=== PATIENT | male | born 1930 | race Caucasian/White ===

== ENCOUNTER 2016-06-19 09:47 | Emergency (ER) | payer MEDICARE ==
[~2016-06-19] VITALS: Wt 83.9 kg
[2016-06-19 10:38] LABS: BASO % 0.1 % (0.0-1.0); EOS # 0.1 10*3/uL (0.0-0.4); EOS % 1.3 % (1.0-4.0); HEMATOCRIT 38.1 % (42.0-52.0); HEMOGLOBIN 12.5 g/dl (14.0-18.0); IG # 0.1 10*3/uL (0.0-0.1); LYMPH # 0.7 10*3/uL (1.3-4.4); LYMPH % 6.9 % (27.0-41.0); MEAN CELL VOLUME 90.5 fl (80.0-94.0); MEAN CORPUSCULAR HGB 29.7 pg (27.0-31.0); MEAN CORPUSCULAR HGB CONC 32.8 g/dl (33.0-37.0); MEAN PLATELET VOLUME 9.1 fl (9.6-12.3); MONO # 0.6 10*3/uL (0.1-1.0); NEUT % 85.1 % (47.0-73.0); PLATELET COUNT AUTOMATED 200 10*3/uL (130-400); RED BLOOD COUNT 4.21 10*6/uL (4.50-5.90); RED CELL DISTRI WIDTH 14.2 % (0-14.5); WHITE BLOOD COUNT 9.4 10*3/uL (4.8-10.8)
[2016-06-19 10:53] LABS: ALBUMIN 3.4 gm/dl (3.1-4.5); ALKALINE PHOSPHATASE 53 U/L (45-117); BILIRUBIN, TOTAL 0.5 mg/dl (0.2-1.0); BUN 27 mg/dl (7-24); CARBON DIOXIDE 29 mmol/L (21-32); CHLORIDE 103 mmol/L (98-107); EST GLOM FILT AFRICAN AMERICAN > 60 ml/min; GLUCOSE 119 mg/dL (65-99); POTASSIUM 3.9 mmol/L (3.5-5.1); SGOT/AST 22 IU/L (3-35); SGPT/ALT 25 U/L (12-78); SODIUM 140 mmol/L (136-145)
[2016-06-19 14:54] LABS: BILIRUBIN NEGATIVE (NEGATIVE); BLOOD 1+ (NEGATIVE); CLARITY CLEAR (CLEAR); COLOR YELLOW (YELLOW); GLUCOSE NEGATIVE (NEGATIVE); KETONE NEGATIVE (NEGATIVE); LEUKO ESTERASE NEGATIVE (NEGATIVE); NITRITE NEGATIVE (NEGATIVE); PROTEIN NEGATIVE (NEGATIVE); SPECIFIC GRAVITY <= 1.005 (1.005-1.030); UROBILINOGEN 0.2 E.U./dl (0.2-1.0)
[2016-06-19 15:07] LABS: URINE REFLEX COMMENT YES (NO); WBC 0-2 wbc/hpf (0-5)
== END 2016-06-19 16:02 | disposition home or self-care (01) ==
LOC: ED 09:47
PROVIDERS: Emergency Medicine
DX: R10.12 Left upper quadrant pain (principal); K21.9 Gastro-esophageal reflux disease without esophagitis; I10 Essential (primary) hypertension; E03.9 Hypothyroidism, unspecified; Z86.73 Personal history of transient ischemic attack (TIA), and cerebral infarction without residual deficits; Z98.890 Other specified postprocedural states; Z90.49 Acquired absence of other specified parts of digestive tract; Z79.82 Long term (current) use of aspirin; Z79.899 Other long term (current) drug therapy; Z88.5 Allergy status to narcotic agent; Z91.018 Allergy to other foods

== ENCOUNTER → 2016-06-19 | Outpatient (CLI) | payer MEDICARE ==
[~2016-06-19] MED LIST: ALENDRONATE SOD70 M1 PO; ARICEPT5 M1 PO; ASPIR LOW81 MG PO; CIPRO500 MG PO; ENSURE PLUS 23237 ML PO; FISH OIL 1,2001 EACH PO; HYDR12.5C PO; ONE DAILY FOR1 EAC2 PO; PROTONIX40 MG PO; SULFAMETH/TRIME1 TA2 PO; SYNTHROID,LEVO88 MCG PO; VITAMIN D400 I1 PO
--- NOTE | ~2016-06-19 | ST ---
[place], [place] EXERCISE STRESS TEST REPORT NAME: THOMPSON DALEY UNIT #: [id number] ROOM: DOCTOR: LYNDON ROSALES,AILIN BIRTHDATE: [birth year] DOS: 06/19/2016 Baseline cardiogram sinus rhythm with complete left bundle branch block, 0.4 mg Lexiscan, duration of 10 seconds. No new EKG changes. However, the underlying left bundle branch block makes the test indeterminate. The patient heart rate is within normal limits. No angina. Nuclear images will be reported separately. AILIN HANEY MD CM:STRESS:EXERCISE STRESS TEST REPORT [id number] AILIN HANEY MD
== END | disposition home or self-care (01) ==
LOC: CARD 03:33
DX: R94.31 Abnormal electrocardiogram [ECG] [EKG] (principal); R53.81 Other malaise

== ENCOUNTER 2016-10-03 21:49 | Emergency (ER) | payer MEDICARE ==
[~2016-10-03] VITALS: Ht 187.9 cm; Wt 81.6 kg
[2016-10-04 01:22] LABS: BILIRUBIN NEGATIVE (NEGATIVE); BLOOD 3+ (NEGATIVE); CLARITY SL CLOUDY (CLEAR); COLOR YELLOW (YELLOW); GLUCOSE NEGATIVE (NEGATIVE); KETONE NEGATIVE (NEGATIVE); LEUKO ESTERASE 2+ (NEGATIVE); NITRITE NEGATIVE (NEGATIVE); PROTEIN 2+ (NEGATIVE); SPECIFIC GRAVITY 1.015 (1.005-1.030)
[2016-10-04 01:29] LABS: BACTERIA 2+; RBC 41-50 rbc/hpf (0-2); URINE REFLEX COMMENT YES (NO); WBC TNTC wbc/hpf (0-5)
[2016-10-04] MEDS ORDERED: AMINOPHYLLIN200 MG PO (01:33)
== END 2016-10-04 01:51 | disposition home or self-care (01) ==
LOC: ED 21:49
PROVIDERS: Emergency Medicine Emergency Medical Services
DX: N39.0 Urinary tract infection, site not specified (principal); I10 Essential (primary) hypertension; E03.9 Hypothyroidism, unspecified; K21.9 Gastro-esophageal reflux disease without esophagitis; M81.0 Age-related osteoporosis without current pathological fracture; Z86.73 Personal history of transient ischemic attack (TIA), and cerebral infarction without residual deficits; Z85.51 Personal history of malignant neoplasm of bladder; Z88.6 Allergy status to analgesic agent; Z91.018 Allergy to other foods; Z79.82 Long term (current) use of aspirin; Z79.899 Other long term (current) drug therapy

== ENCOUNTER 2017-05-28 13:55 | Emergency (ER) | payer MEDICARE ==
[~2017-05-28] VITALS: Ht 185.4 cm; Wt 83.9 kg
[~2017-05-28 13:55] MED LIST changes: +AMINOPHYLLIN200 MG PO
[2017-05-28 14:29] LABS: BASO % 0.6 % (0.0-1.0); EOS # 0.3 10*3/uL (0.0-0.4); EOS % 5.1 % (1.0-4.0); HEMATOCRIT 38.1 % (42.0-52.0); HEMOGLOBIN 12.6 g/dl (14.0-18.0); LYMPH % 19.5 % (27.0-41.0); MEAN CELL VOLUME 93.6 fl (80.0-94.0); MEAN CORPUSCULAR HGB CONC 33.1 g/dl (33.0-37.0); MEAN PLATELET VOLUME 9.2 fl (9.6-12.3); MONO # 0.5 10*3/uL (0.1-1.0); MONO % 9.5 % (3.0-9.0); NEUT # 3.4 10*3/uL (2.3-7.9); NEUT % 64.5 % (47.0-73.0); PLATELET COUNT AUTOMATED 203 10*3/uL (130-400); RED BLOOD COUNT 4.07 10*6/uL (4.50-5.90); RED CELL DISTRI WIDTH 13.5 % (0-14.5); WHITE BLOOD COUNT 5.3 10*3/uL (4.8-10.8)
[2017-05-28 14:43] LABS: ALBUMIN 3.6 gm/dl (3.1-4.5); ALKALINE PHOSPHATASE 74 U/L (45-117); BUN 22 mg/dl (7-24); CHLORIDE 100 mmol/L (98-107); CREATININE 1.18 mg/dL (0.70-1.30); POTASSIUM 4.2 mmol/L (3.5-5.1); SGOT/AST 26 IU/L (3-35); SGPT/ALT 20 U/L (12-78); SODIUM 135 mmol/L (136-145); TOTAL PROTEIN 7.4 gm/dL (6.4-8.2)
[2017-05-28 14:53] LABS: ACT PARTIAL THROMBO TIME 24.8 SECONDS (20.8-31.5)
== END 2017-05-28 15:50 | disposition home or self-care (01) ==
LOC: ED 13:55
PROVIDERS: Emergency Medicine
DX: R04.0 Epistaxis (principal); K21.9 Gastro-esophageal reflux disease without esophagitis; I10 Essential (primary) hypertension; N17.0 Acute kidney failure with tubular necrosis; Z79.82 Long term (current) use of aspirin; Z79.899 Other long term (current) drug therapy; Z91.013 Allergy to seafood; Z88.6 Allergy status to analgesic agent; Z91.018 Allergy to other foods; Z90.89 Acquired absence of other organs; Z90.49 Acquired absence of other specified parts of digestive tract

== ENCOUNTER 2018-06-12 09:19 | Emergency (ER) | payer MEDICARE ==
[~2018-06-12] VITALS: Ht 185.4 cm; Wt 79.8 kg
--- NOTE | ~2018-06-12 | EKG ---
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
[~2018-06-12 09:19] MED LIST changes: +DONEPEZIL HCL10 MG PO; +GAVISCON 80-141 EACH PO; +LEVOTHYROXINE100 MC1 PO
[2018-06-12 09:44] LABS: BASO % 0.4 % (0.0-1.0); EOS # 0.1 10*3/uL (0.0-0.4); EOS % 1.3 % (1.0-4.0); LYMPH # 1.1 10*3/uL (1.3-4.4); LYMPH % 16.5 % (27.0-41.0); MEAN CELL VOLUME 92.5 fl (80.0-94.0); MEAN CORPUSCULAR HGB 30.1 pg (27.0-31.0); MEAN CORPUSCULAR HGB CONC 32.6 g/dl (33.0-37.0); MEAN PLATELET VOLUME 9.7 fl (9.6-12.3); MONO # 0.6 10*3/uL (0.1-1.0); MONO % 9.1 % (3.0-9.0); NEUT # 4.9 10*3/uL (2.3-7.9); NEUT % 72.1 % (47.0-73.0); PLATELET COUNT AUTOMATED 214 10*3/uL (130-400); RED BLOOD COUNT 4.65 10*6/uL (4.50-5.90); RED CELL DISTRI WIDTH 13.9 % (0-14.5); WHITE BLOOD COUNT 6.9 10*3/uL (4.8-10.8)
[2018-06-12 09:52] LABS: ACT PARTIAL THROMBO TIME 25.1 SECONDS (20.8-31.5); INTERNATIONAL NORM RATIO 0.9 (2.0-3.5)
[2018-06-12 10:02] LABS: ALBUMIN 3.6 gm/dl (3.1-4.5); ALKALINE PHOSPHATASE 83 U/L (45-117); BUN 19 mg/dl (7-24); CHLORIDE 96 mmol/L (98-107); LIPASE 123 U/L (73-393); POTASSIUM 3.7 mmol/L (3.5-5.1); SGOT/AST 23 IU/L (3-35); SGPT/ALT 23 U/L (12-78); SODIUM 131 mmol/L (136-145); TOTAL PROTEIN 8.1 gm/dL (6.4-8.2)
[2018-06-12 10:03] LABS: TROPONIN I < 0.015 ng/ml (<0.045)
[2018-06-12 10:52] LABS: BILIRUBIN NEGATIVE (NEGATIVE); BLOOD NEGATIVE (NEGATIVE); CLARITY SL CLOUDY (CLEAR); COLOR ORANGE (YELLOW); GLUCOSE 1+ (NEGATIVE); KETONE TRACE (NEGATIVE); NITRITE POSITIVE (NEGATIVE); SPECIFIC GRAVITY <= 1.005 (1.005-1.030)
[2018-06-12 10:53] LABS: LEUKO ESTERASE TRACE (NEGATIVE)
[2018-06-12] MEDS ORDERED: CIPRO250 MG PO (11:04)
[2018-06-12 11:06] LABS: BACTERIA TRACE
[2018-08-04] MEDS ORDERED: ASPIRIN ADULT L81 M1 PO (10:44)
[2018-08-04] MEDS ORDERED: ALENDRONATE SOD10 M1 PO (10:44)
[2018-08-07] MEDS ORDERED: AMINOPHYLLIN200 MG PO (11:39)
[2018-08-07] MEDS ORDERED: SYNTHROID137 MCG PO (11:39)
[2018-08-07] MEDS ORDERED: CALCIUM CARBON200 MG PO (11:39)
[2018-10-18] MEDS ORDERED: QUESTRAN POWDE378 GM PO (13:54)
[2018-10-18] MEDS ORDERED: QUESTRAN LIGHT4 GM PO (14:06)
== END 2018-06-12 11:09 | disposition home or self-care (01) ==
LOC: ED 09:19
PROVIDERS: Emergency Medicine
DX: N39.0 Urinary tract infection, site not specified (principal); E87.1 Hypo-osmolality and hyponatremia; K21.9 Gastro-esophageal reflux disease without esophagitis; I10 Essential (primary) hypertension; E03.9 Hypothyroidism, unspecified; M81.0 Age-related osteoporosis without current pathological fracture; Z91.018 Allergy to other foods; Z88.5 Allergy status to narcotic agent; Z79.899 Other long term (current) drug therapy; Z90.49 Acquired absence of other specified parts of digestive tract

== ENCOUNTER 2018-06-18 10:14 | Emergency (ER) | payer MEDICARE ==
[~2018-06-18] VITALS: Wt 79.4 kg
[~2018-06-18 10:14] MED LIST changes: +CIPRO250 MG PO
[2018-06-18 11:02] LABS: BILIRUBIN NEGATIVE (NEGATIVE); BLOOD NEGATIVE (NEGATIVE); CLARITY CLEAR (CLEAR); COLOR YELLOW (YELLOW); GLUCOSE NEGATIVE (NEGATIVE); KETONE NEGATIVE (NEGATIVE); LEUKO ESTERASE NEGATIVE (NEGATIVE); NITRITE NEGATIVE (NEGATIVE); UROBILINOGEN 0.2 E.U./dl (0.2-1.0)
[2018-08-04] MEDS ORDERED: ALENDRONATE SOD10 M1 PO (10:44)
[2018-08-04] MEDS ORDERED: ASPIRIN ADULT L81 M1 PO (10:44)
[2018-08-07] MEDS ORDERED: SYNTHROID137 MCG PO (11:39)
[2018-08-07] MEDS ORDERED: CALCIUM CARBON200 MG PO (11:39)
[2018-08-07] MEDS ORDERED: AMINOPHYLLIN200 MG PO (11:39)
[2018-10-18] MEDS ORDERED: QUESTRAN POWDE378 GM PO (13:54)
[2018-10-18] MEDS ORDERED: QUESTRAN LIGHT4 GM PO (14:06)
== END 2018-06-18 11:34 | disposition home or self-care (01) ==
LOC: ED 10:14
PROVIDERS: Emergency Medicine
DX: R53.83 Other fatigue (principal); R09.81 Nasal congestion; K21.9 Gastro-esophageal reflux disease without esophagitis; I10 Essential (primary) hypertension; E03.9 Hypothyroidism, unspecified; Z86.73 Personal history of transient ischemic attack (TIA), and cerebral infarction without residual deficits; Z98.890 Other specified postprocedural states; Z90.49 Acquired absence of other specified parts of digestive tract; Z79.899 Other long term (current) drug therapy; Z88.5 Allergy status to narcotic agent; Z91.018 Allergy to other foods

== ENCOUNTER 2018-08-17 09:01 | Emergency (ER) | payer MEDICARE ==
[~2018-08-17] VITALS: Ht 185.4 cm; Wt 81.6 kg
[~2018-08-17 09:01] MED LIST changes: +ALENDRONATE SOD10 M1 PO; +ASPIRIN ADULT L81 M1 PO; +CALCIUM CARBON200 MG PO; +SYNTHROID137 MCG PO
[2018-08-17 10:09] LABS: BASO % 0.6 % (0.0-1.0); EOS # 0.2 10*3/uL (0.0-0.4); EOS % 2.5 % (1.0-4.0); HEMOGLOBIN 13.7 g/dl (14.0-18.0); LYMPH # 1.3 10*3/uL (1.3-4.4); LYMPH % 19.3 % (27.0-41.0); MEAN CELL VOLUME 93.2 fl (80.0-94.0); MEAN CORPUSCULAR HGB 31.1 pg (27.0-31.0); MEAN CORPUSCULAR HGB CONC 33.4 g/dl (33.0-37.0); MEAN PLATELET VOLUME 9.3 fl (9.6-12.3); MONO # 0.7 10*3/uL (0.1-1.0); MONO % 10.2 % (3.0-9.0); NEUT # 4.6 10*3/uL (2.3-7.9); NEUT % 66.8 % (47.0-73.0); PLATELET COUNT AUTOMATED 276 10*3/uL (130-400); RED CELL DISTRI WIDTH 14.6 % (0-14.5); WHITE BLOOD COUNT 6.8 10*3/uL (4.8-10.8)
[2018-08-17 10:25] LABS: ALBUMIN 3.7 gm/dl (3.1-4.5); ALKALINE PHOSPHATASE 68 U/L (45-117); BUN 17 mg/dl (7-24); CHLORIDE 97 mmol/L (98-107); CREATININE 1.24 mg/dL (0.70-1.30); LIPASE 393 U/L (73-393); POTASSIUM 4.4 mmol/L (3.5-5.1); SGOT/AST 29 IU/L (3-35); SGPT/ALT 26 U/L (12-78); SODIUM 132 mmol/L (136-145); TOTAL PROTEIN 7.8 gm/dL (6.4-8.2)
[2018-08-17 10:30] LABS: BILIRUBIN NEGATIVE (NEGATIVE); BLOOD TRACE-INTACT (NEGATIVE); CLARITY CLEAR (CLEAR); COLOR YELLOW (YELLOW); GLUCOSE NEGATIVE (NEGATIVE); KETONE NEGATIVE (NEGATIVE); LEUKO ESTERASE NEGATIVE (NEGATIVE); NITRITE NEGATIVE (NEGATIVE); PH 6.5 (5.0-9.0); SPECIFIC GRAVITY <= 1.005 (1.005-1.030); UROBILINOGEN 0.2 E.U./dl (0.2-1.0)
[2018-08-17 10:51] LABS: WBC 0-2 wbc/hpf (0-5)
[2018-08-17] MEDS ORDERED: SEPTDS PO (11:10)
[2018-10-18] MEDS ORDERED: QUESTRAN POWDE378 GM PO (13:54)
[2018-10-18] MEDS ORDERED: QUESTRAN LIGHT4 GM PO (14:06)
== END 2018-08-17 11:13 | disposition home or self-care (01) ==
LOC: ED 09:01
PROVIDERS: Physician Assistant
DX: R30.0 Dysuria (principal); Z96.612 Presence of left artificial shoulder joint; Z90.49 Acquired absence of other specified parts of digestive tract; Z98.890 Other specified postprocedural states; Z79.82 Long term (current) use of aspirin; Z88.5 Allergy status to narcotic agent

== ENCOUNTER 2018-10-12 09:40 | Emergency (ER) | payer MEDICARE ==
[~2018-10-12] VITALS: Ht 185.4 cm; Wt 79.4 kg
[~2018-10-12 09:40] MED LIST changes: +SEPTDS PO
[2018-10-12 10:08] LABS: BASO % 0.2 % (0.0-1.0); EOS # 0.1 10*3/uL (0.0-0.4); EOS % 1.2 % (1.0-4.0); HEMATOCRIT 39.7 % (42.0-52.0); HEMOGLOBIN 12.8 g/dl (14.0-18.0); LYMPH # 0.8 10*3/uL (1.3-4.4); LYMPH % 14.1 % (27.0-41.0); MEAN CORPUSCULAR HGB 30.6 pg (27.0-31.0); MEAN CORPUSCULAR HGB CONC 32.2 g/dl (33.0-37.0); MEAN PLATELET VOLUME 9.9 fl (9.6-12.3); MONO # 0.7 10*3/uL (0.1-1.0); MONO % 11.5 % (3.0-9.0); NEUT # 4.1 10*3/uL (2.3-7.9); NEUT % 72.8 % (47.0-73.0); PLATELET COUNT AUTOMATED 183 10*3/uL (130-400); RED BLOOD COUNT 4.18 10*6/uL (4.50-5.90); RED CELL DISTRI WIDTH 14.5 % (0-14.5); WHITE BLOOD COUNT 5.7 10*3/uL (4.8-10.8)
[2018-10-12 10:26] LABS: ALBUMIN 3.6 gm/dl (3.1-4.5); ALKALINE PHOSPHATASE 96 U/L (45-117); BUN 17 mg/dl (7-24); CHLORIDE 102 mmol/L (98-107); CREATININE 1.35 mg/dL (0.70-1.30); POTASSIUM 3.6 mmol/L (3.5-5.1); SGOT/AST 21 IU/L (3-35); SGPT/ALT 16 U/L (12-78); SODIUM 136 mmol/L (136-145); TOTAL PROTEIN 7.7 gm/dL (6.4-8.2)
[2018-10-12 11:16] LABS: BILIRUBIN NEGATIVE (NEGATIVE); BLOOD NEGATIVE (NEGATIVE); CLARITY CLEAR (CLEAR); COLOR YELLOW (YELLOW); GLUCOSE NEGATIVE (NEGATIVE); KETONE NEGATIVE (NEGATIVE); LEUKO ESTERASE NEGATIVE (NEGATIVE); NITRITE NEGATIVE (NEGATIVE); SPECIFIC GRAVITY <= 1.005 (1.005-1.030); UROBILINOGEN 0.2 E.U./dl (0.2-1.0)
[2018-10-12 11:27] LABS: BACTERIA TRACE; RBC 0-2 rbc/hpf (0-2); WBC 0-2 wbc/hpf (0-5)
[2018-10-18] MEDS ORDERED: QUESTRAN POWDE378 GM PO (13:54)
[2018-10-18] MEDS ORDERED: QUESTRAN LIGHT4 GM PO (14:06)
== END 2018-10-12 11:55 | disposition home or self-care (01) ==
LOC: ED 09:40
PROVIDERS: Internal Medicine
DX: E86.0 Dehydration (principal); I12.9 Hypertensive chronic kidney disease with stage 1 through stage 4 chronic kidney disease, or unspecified chronic kidney disease; N18.3 Chronic kidney disease, stage 3 (moderate); K21.9 Gastro-esophageal reflux disease without esophagitis; E03.9 Hypothyroidism, unspecified; M81.0 Age-related osteoporosis without current pathological fracture; Z88.6 Allergy status to analgesic agent; Z91.018 Allergy to other foods; Z79.899 Other long term (current) drug therapy; Z79.82 Long term (current) use of aspirin; Z86.73 Personal history of transient ischemic attack (TIA), and cerebral infarction without residual deficits

== ENCOUNTER 2019-04-21 18:18 | Inpatient (IN) | payer MEDICARE ==
[~2019-04-21] VITALS: Ht 182.8 cm; Wt 86.7 kg
[~2019-04-21 18:18] MED LIST changes: -ALENDRONATE SOD10 M1 PO; +FOSAMAX70 M1 PO; +QUESTRAN LIGHT4 GM PO; +QUESTRAN POWDE378 GM PO
[2019-04-21 18:29] VITALS: BP 053/67
[2019-04-21 19:46] VITALS: BP 112/87
[2019-04-21] MEDS ORDERED: DONEPEZIL HCL10 MG PO (19:50)
[2019-04-21] MEDS ORDERED: NAMENDA10 MG PO (19:50)
[2019-04-21 19:56] LABS: BASO # 0.1 10*3/uL (0.0-0.1); BASO % 0.6 % (0.0-1.0); EOS # 0.2 10*3/uL (0.0-0.4); EOS % 2.1 % (1.0-4.0); HEMATOCRIT 37.5 % (42.0-52.0); HEMOGLOBIN 12.3 g/dl (14.0-18.0); LYMPH # 1.6 10*3/uL (1.3-4.4); LYMPH % 20.6 % (27.0-41.0); MEAN CELL VOLUME 90.1 fl (80.0-94.0); MEAN CORPUSCULAR HGB 29.6 pg (27.0-31.0); MEAN CORPUSCULAR HGB CONC 32.8 g/dl (33.0-37.0); MONO # 0.8 10*3/uL (0.1-1.0); MONO % 10.4 % (3.0-9.0); NEUT # 5.1 10*3/uL (2.3-7.9); NEUT % 65.9 % (47.0-73.0); PLATELET COUNT AUTOMATED 285 10*3/uL (130-400); RED BLOOD COUNT 4.16 10*6/uL (4.50-5.90); RED CELL DISTRI WIDTH 14.5 % (0-14.5); WHITE BLOOD COUNT 7.7 10*3/uL (4.8-10.8)
--- NOTE | 2019-04-21 20:00 | NUR ---
PT ADVISED HE NEEDS A URINE SPECIMEN. HE STATES THAT HE SELF CATHS AT HOME. PT PROVIDED CATH KIT AND A CUP OF WATER.
[2019-04-21 20:07] LABS: ACT PARTIAL THROMBO TIME 27.7 SECONDS (20.0-32.1)
[2019-04-21 20:14] LABS: ALBUMIN 3.4 gm/dl (3.1-4.5); ALKALINE PHOSPHATASE 124 U/L (45-117); BUN 20 mg/dl (7-24); CHLORIDE 100 mmol/L (98-107); CREATININE 1.26 mg/dL (0.70-1.30); POTASSIUM 4.6 mmol/L (3.5-5.1); SGOT/AST 36 IU/L (3-35); SGPT/ALT 35 U/L (12-78); SODIUM 130 mmol/L (136-145); TOTAL PROTEIN 7.1 gm/dL (6.4-8.2)
[2019-04-21 20:22] LABS: TROPONIN I 0.099 ng/ml (<0.045)
[2019-04-21 20:38] VITALS: BP 145/70
[2019-04-21 20:50] LABS: BILIRUBIN NEGATIVE (NEGATIVE); BLOOD 2+ (NEGATIVE); CLARITY CLEAR (CLEAR); COLOR YELLOW (YELLOW); GLUCOSE NEGATIVE (NEGATIVE); KETONE 1+ (NEGATIVE); LEUKO ESTERASE 1+ (NEGATIVE); NITRITE NEGATIVE (NEGATIVE); SPECIFIC GRAVITY 1.015 (1.005-1.030); UROBILINOGEN 0.2 E.U./dl (0.2-1.0)
[2019-04-21 20:51] LABS: BACTERIA 2+
[2019-04-21 21:17] VITALS: BP 143/68
--- NOTE | 2019-04-21 21:17 | NUR ---
PT RESTING COMFORTABLY IN ROOM WITHOUT ANY SIGNS OF ACUTE DISTRESS NOTED. RESPS ARE EASY AND NONLABORED.
[2019-04-21 22:45] VITALS: BP 160/80
--- NOTE | 2019-04-21 22:45 | NUR ---
A 88, admitted to 4E, under the services of VICTORINO Gil DO with a diagnosis of CHEST PAIN, ELEVATED TROPONIN. Chief complaint is GENERALIZED WEAKNESS. Patient arrived via stretcher from ER. Monitor applied. Initial assessment completed. Vital signs taken and recorded. VICTORINO GIL DO notified of admission to the unit. Orders received. See assessment for past medical history, medications and allergies. Patient and/or family oriented to unit. [facility] visitation policy reviewed. Clothing/patient valuable form completed. RIYA DELEON
[2019-04-21] MEDS ORDERED: ASPIRIN ADULT L81 M1 PO (23:11)
[2019-04-21] MEDS ORDERED: ARICEPT10 M1 PO (23:12)
[2019-04-21] MEDS ORDERED: HYDR25T PO (23:12)
[2019-04-21] MEDS ORDERED: TYLENOL EXTRA500 M2 PO (23:13)
[2019-04-21] MEDS ORDERED: Synthroid,Lev150 MCG PO (23:14)
[2019-04-21] MEDS ORDERED: CLARITIN10 MG PO (23:17)
--- NOTE | 2019-04-21 23:18 | NUR ---
MED REC UP TO DATE PER PT RECALL.
[2019-04-22] VITALS: BP 151/65
--- NOTE | 2019-04-22 00:05 | NUR ---
'S ANSWERING SERVICE CALLED REGARDING CONSULT. INFORMATION & CALL BACK NUMBER LEFT WITH SOFTWARE ENGINEER BACKEND.
--- NOTE | 2019-04-22 01:40 | NUR ---
NOTIFIED OF CRITICAL TROPONIN 0.107, UP FROM 0.093. PT ASYMPTOMATIC.
--- NOTE | 2019-04-22 03:23 | NUR ---
PATIENT STRAIGHT CATHS SELF AT HOME DUE TO "URINARY PROBLEMS" UNSPECIFIED BY PATIENT/. PATIENT PROVIDED WITH STRAIGHT CATH KIT AND ASSISTED UP TO BATHROOM 4 DIFFERENT TIMES SINCE ADMISSION AT 2245. PATIENT REFUSES TO USE BETADINE OR ANY CLEANING/DISINFECTING SWABS BEFORE INSERTING CATHETER. PT ALSO REFUSING TO WEAR GLOVES. PT STATES "I'LL JUST WASH MY HANDS." RN AND PA EDUCATE ABOUT IMPORTANCE OF CLEANING PENIS BEFORE INSERTION OF CATH AND IMPORTANCE OF WEARING GLOVES. PT UNRECEPTIVE TO EDUCATION. PT ALSO REFUSING TO URINATE IN ANYTHING BUT TOILET. AMOUNTS UNMEASURED, BUT VERY LITTLE URINE OUTPUT VISUALLY NOTED. RN CALLED TO QUESTION POSSIBILITY OF HINSON CATHETER. WILL ASK DAY TEAM. NO HINSON ORDER AT THIS TIME. PATIENT CAN ANSWER QUESTIONS APPROPRIATELY, BUT IS MUCH MORE CONFUSED AT NIGHT. PT HAS SET OFF BED ALARM MULTIPLE TIMES. RN AND PA EDUCATED PATIENT ABOUT GETTING UP WITH SOMEONE THERE TO ASSIST HIM. PT REPLIES, "I CAN'T GET UP BY MYSELF? WATCH ME." PATIENT CONTINUES TO GET UP OUT OF BED AND STUMBLES. PT MUCH MORE UNSTEADY THAN HE HAD BEEN EARLIER IN THE NIGHT. PT REGAINS BALANCE AND ABLE TO AMBULATE STEADILY WITH ASSIST. PER , PT HAS HX OF DEMENTIA THAT GETS WORSE AT NIGHT.
[2019-04-22 07:41] LABS: BASO # 0.1 10*3/uL (0.0-0.1); BASO % 0.7 % (0.0-1.0); EOS # 0.2 10*3/uL (0.0-0.4); EOS % 2.2 % (1.0-4.0); HEMATOCRIT 37.5 % (42.0-52.0); HEMOGLOBIN 12.5 g/dl (14.0-18.0); LYMPH # 1.5 10*3/uL (1.3-4.4); LYMPH % 20.4 % (27.0-41.0); MEAN CELL VOLUME 91.5 fl (80.0-94.0); MEAN CORPUSCULAR HGB 30.5 pg (27.0-31.0); MEAN CORPUSCULAR HGB CONC 33.3 g/dl (33.0-37.0); MEAN PLATELET VOLUME 10.2 fl (9.6-12.3); MONO # 0.8 10*3/uL (0.1-1.0); MONO % 10.4 % (3.0-9.0); NEUT # 4.7 10*3/uL (2.3-7.9); NEUT % 65.9 % (47.0-73.0); PLATELET COUNT AUTOMATED 262 10*3/uL (130-400); RED CELL DISTRI WIDTH 14.5 % (0-14.5); WHITE BLOOD COUNT 7.2 10*3/uL (4.8-10.8)
--- NOTE | 2019-04-22 07:45 | NUR ---
PHYSICAL THERAPY Screen and PT eval received will follow, thank you Hiwot Molina PT
[2019-04-22 08:00] VITALS: BP 156/82
[2019-04-22 08:03] LABS: ALBUMIN 3.2 gm/dl (3.1-4.5); ALKALINE PHOSPHATASE 116 U/L (45-117); BUN 18 mg/dl (7-24); CHLORIDE 102 mmol/L (98-107); CHOLESTEROL 91 mg/dL (<200); CREATININE 1.09 mg/dL (0.70-1.30); FREE T4 1.71 ng/dl (0.76-1.46); HDL CHOLESTEROL 45 mg/dl (40-60); LDL CHOLESTEROL 33 mg/dL (9-159); PHOSPHOROUS 3.5 mg/dL (2.5-4.9); POTASSIUM 4.1 mmol/L (3.5-5.1); SGOT/AST 25 IU/L (3-35); SGPT/ALT 29 U/L (12-78); SODIUM 134 mmol/L (136-145); TOTAL PROTEIN 6.7 gm/dL (6.4-8.2); TRIGLYCERIDES 66 mg/dl (<150); VLDL CHOLESTEROL 13 mg/dL (6-40)
[2019-04-22 08:29] LABS: VITAMIN D, 25-HYDROXY 48.1 ng/mL (30-100)
--- NOTE | 2019-04-22 09:31 | NUR ---
Occupational therapy orders and nursing screen received. Will follow up with patient for completion of OT eval. Thank you. Diana Chakraborty, OTR/L
[2019-04-22 12:46] VITALS: BP 129/63
--- NOTE | 2019-04-22 13:28 | NUR ---
Block Cuber in to talk to patient. Patient states lives at home with . There are no steps in the home. Physician: earl Pharmacy: [facility] health services: none Patient's level of ADLs: MINIMAL ASSIST Patient has working utilities: all working DME: cane Follow-up physician's appointment after d/c: will be made by hospitalist nurse director upon discharge Does patient want to access PORTAL?: no Discharge plan discussed with patient and , states patient lives at home with her and is independent in adls and ambulation with a cane, he states he will return home when medically stable, discussed with them [facility] and educated them on their services also discussed a short term fdc for rehab prior to returning home, stated she was not sure at this time what patient would need, case managment will follow. ARELIS SANTOS
[2019-04-22 16:00] VITALS: BP 141/62
--- NOTE | 2019-04-22 19:25 | NUR ---
REPORT RECEIVED FROM DAYLIGHT NURSE. PT LYING IN BED AT THIS TIME. FAMILY MEMBERS PRESENT AT BEDSIDE. NO COMPLAINTS VOICED. CALL LIGHT IN REACH.
[2019-04-22 20:00] VITALS: BP 127/62
--- NOTE | 2019-04-22 21:00 | NUR ---
PT LYING IN BED. NO COMPLAINTS VOICED. CALL LIGHT IN REACH.
[2019-04-23] VITALS: BP 142/59
[2019-04-23 08:00] VITALS: BP 120/58; BP 124/64
[2019-04-23 08:26] LABS: BASO # 0.1 10*3/uL (0.0-0.1); BASO % 0.6 % (0.0-1.0); EOS # 0.2 10*3/uL (0.0-0.4); EOS % 2.5 % (1.0-4.0); HEMATOCRIT 36.3 % (42.0-52.0); LYMPH # 1.4 10*3/uL (1.3-4.4); MEAN CELL VOLUME 90.8 fl (80.0-94.0); MEAN CORPUSCULAR HGB CONC 33.1 g/dl (33.0-37.0); MONO % 11.6 % (3.0-9.0); NEUT # 5.7 10*3/uL (2.3-7.9); NEUT % 67.9 % (47.0-73.0); PLATELET COUNT AUTOMATED 258 10*3/uL (130-400); RED CELL DISTRI WIDTH 14.5 % (0-14.5); WHITE BLOOD COUNT 8.4 10*3/uL (4.8-10.8)
[2019-04-23 09:00] LABS: BUN 19 mg/dl (7-24); CHLORIDE 100 mmol/L (98-107); CREATININE 1.22 mg/dL (0.70-1.30); SODIUM 133 mmol/L (136-145)
--- NOTE | 2019-04-23 09:00 | NUR ---
case management visits with patient, daughter present, discussed with them a discharge plan including a short term jail for rehab prior to returning home, daughter and patient declined, also discussed with them [facility] and educated on what services are provided throught VNA, they also declined this. daughter stated when patient is discharged the family will make arrangements for him to go to another hospital for consultaion with a silver buffer and possibly heart valve surgery, daughter stated if patient needs VNA after this they will have the facility set it up
[2019-04-23] MEDS ORDERED: METOPROLOL SUCC25 M2 PO (11:19)
[2019-04-23] MEDS ORDERED: PROTONIX40 MG PO (11:19)
--- NOTE | 2019-04-23 12:15 | NUR ---
Discharge instructions reviewed with patient/family. Patient receptive and verbalizes understanding. Follow-up care arranged. Written instructions given to patient/family. [place] DISCONTINUED. PATIENT TAKEN OFF FLOOR VIA WHEELCHAIR WITH FAMILY. MY WARD
== END 2019-04-23 12:15 | disposition home or self-care (01) | DRG 391 ==
LOC: ED 18:18 → EDHOLD 21:56 → 4E 21:56
PROVIDERS: Emergency Medicine; Family Medicine; Internal Medicine; ADMIT Internal Medicine
DX: R10.13 Epigastric pain (principal); J18.9 Pneumonia, unspecified organism; E44.1 Mild protein-calorie malnutrition; E87.1 Hypo-osmolality and hyponatremia; I13.0 Hypertensive heart and chronic kidney disease with heart failure and stage 1 through stage 4 chronic kidney disease, or unspecified chronic kidney disease; I50.20 Unspecified systolic (congestive) heart failure; K21.9 Gastro-esophageal reflux disease without esophagitis; I35.0 Nonrheumatic aortic (valve) stenosis; R74.0 Nonspecific elevation of levels of transaminase and lactic acid dehydrogenase [LDH]; K57.90 Diverticulosis of intestine, part unspecified, without perforation or abscess without bleeding; K44.9 Diaphragmatic hernia without obstruction or gangrene; M81.0 Age-related osteoporosis without current pathological fracture; E03.9 Hypothyroidism, unspecified; N18.3 Chronic kidney disease, stage 3 (moderate); D64.9 Anemia, unspecified; F03.90 Unspecified dementia, unspecified severity, without behavioral disturbance, psychotic disturbance, mood disturbance, and anxiety; I44.7 Left bundle-branch block, unspecified; E11.22 Type 2 diabetes mellitus with diabetic chronic kidney disease; Z96.1 Presence of intraocular lens; Z68.25 Body mass index [BMI] 25.0-25.9, adult; Z88.5 Allergy status to narcotic agent; I35.1 Nonrheumatic aortic (valve) insufficiency; Z91.018 Allergy to other foods; Z79.899 Other long term (current) drug therapy; Z79.82 Long term (current) use of aspirin; I25.2 Old myocardial infarction; Z98.49 Cataract extraction status, unspecified eye; Z82.3 Family history of stroke; Z82.0 Family history of epilepsy and other diseases of the nervous system

== ENCOUNTER 2019-04-29 12:38 | Inpatient (IN) | payer MEDICARE ==
[2019-04-29] VITALS (10 sets, daily range): BP systolic 97–145; BP diastolic 45–86
[~2019-04-29] VITALS: Ht 182.8 cm; Wt 80.9 kg
[~2019-04-29 12:38] MED LIST changes: +ARICEPT10 M1 PO; +CLARITIN10 MG PO; +HYDR25T PO; +METOPROLOL SUCC25 M2 PO; +NAMENDA10 MG PO; +Synthroid,Lev150 MCG PO; +TYLENOL EXTRA500 M2 PO
[2019-04-29 13:49] LABS: BASO # 0.1 10*3/uL (0.0-0.1); BASO % 0.7 % (0.0-1.0); EOS # 0.1 10*3/uL (0.0-0.4); HEMATOCRIT 37.5 % (42.0-52.0); HEMOGLOBIN 12.3 g/dl (14.0-18.0); LYMPH # 1.4 10*3/uL (1.3-4.4); LYMPH % 20.2 % (27.0-41.0); MEAN CELL VOLUME 90.1 fl (80.0-94.0); MEAN CORPUSCULAR HGB 29.6 pg (27.0-31.0); MEAN CORPUSCULAR HGB CONC 32.8 g/dl (33.0-37.0); MEAN PLATELET VOLUME 9.8 fl (9.6-12.3); MONO # 0.9 10*3/uL (0.1-1.0); MONO % 12.9 % (3.0-9.0); NEUT # 4.4 10*3/uL (2.3-7.9); NEUT % 63.5 % (47.0-73.0); PLATELET COUNT AUTOMATED 261 10*3/uL (130-400); RED BLOOD COUNT 4.16 10*6/uL (4.50-5.90); RED CELL DISTRI WIDTH 14.2 % (0-14.5)
[2019-04-29 14:01] LABS: ACT PARTIAL THROMBO TIME 27.3 SECONDS (20.0-32.1)
[2019-04-29 14:08] LABS: ALBUMIN 3.3 gm/dl (3.1-4.5); ALKALINE PHOSPHATASE 110 U/L (45-117); BUN 20 mg/dl (7-24); CHLORIDE 103 mmol/L (98-107); CREATININE 1.07 mg/dL (0.70-1.30); POTASSIUM 4.2 mmol/L (3.5-5.1); SGOT/AST 18 IU/L (3-35); SGPT/ALT 25 U/L (12-78); SODIUM 134 mmol/L (136-145); TOTAL PROTEIN 6.8 gm/dL (6.4-8.2)
[2019-04-29 14:13] LABS: TROPONIN I 0.052 ng/ml (<0.045)
[2019-04-29 16:26] LABS: BILIRUBIN NEGATIVE (NEGATIVE); BLOOD 2+ (NEGATIVE); CLARITY CLEAR (CLEAR); COLOR YELLOW (YELLOW); GLUCOSE NEGATIVE (NEGATIVE); KETONE NEGATIVE (NEGATIVE); LEUKO ESTERASE 2+ (NEGATIVE); NITRITE POSITIVE (NEGATIVE); UROBILINOGEN 0.2 E.U./dl (0.2-1.0)
[2019-04-29 16:27] LABS: BACTERIA 4+; EPITHELIAL CELLS 0-2; MUCOUS 1+
--- NOTE | 2019-04-29 18:30 | NUR ---
Time: 1829 A 88 year old MALE admitted to under services of HILARY NO DO, Pt. arrived via from ER. Chief complaint: CHEST DISCOMFORT, NSTEMI. PATIENT ORIENTED TO THE FLOOR, PATIENT CARE FORMS REVIEWED AND COMPLETED CARI CENTENO
--- NOTE | 2019-04-29 18:45 | NUR ---
CARDIOLOGY AWARE OF CONSULT. SPOKE WITH DR. ROMA GARCIA IN THE ER. PATIENT WILL BE SEEN IN THE MORNING.
--- NOTE | 2019-04-29 21:26 | NUR ---
PT RESTING COMFORTABLY ON BED WITH FAMILY AT BEDSIDE. PT WITH EASY RESPIRATIONS NOTED. NO DISTRESS AT THIS TIME. PLEASANTLY CONFUSED. STRAIGHT CATH COMPLETED. PT TOLERATED WELL. NO VOICED NEEDS OR CONCERNS. RN TO CONTINUE TO MONITOR.
[2019-04-30] VITALS: BP 119/62
[2019-04-30 06:18] LABS: BASO # 0.1 10*3/uL (0.0-0.1); BASO % 0.9 % (0.0-1.0); EOS # 0.2 10*3/uL (0.0-0.4); EOS % 2.6 % (1.0-4.0); HEMATOCRIT 38.9 % (42.0-52.0); HEMOGLOBIN 12.7 g/dl (14.0-18.0); LYMPH # 1.6 10*3/uL (1.3-4.4); LYMPH % 21.5 % (27.0-41.0); MEAN CELL VOLUME 90.5 fl (80.0-94.0); MEAN CORPUSCULAR HGB 29.5 pg (27.0-31.0); MEAN CORPUSCULAR HGB CONC 32.6 g/dl (33.0-37.0); MEAN PLATELET VOLUME 10.6 fl (9.6-12.3); MONO # 0.9 10*3/uL (0.1-1.0); MONO % 11.5 % (3.0-9.0); NEUT # 4.8 10*3/uL (2.3-7.9); NEUT % 62.8 % (47.0-73.0); PLATELET COUNT AUTOMATED 245 10*3/uL (130-400); RED CELL DISTRI WIDTH 14.2 % (0-14.5); WHITE BLOOD COUNT 7.6 10*3/uL (4.8-10.8)
[2019-04-30 06:34] LABS: ALBUMIN 3.2 gm/dl (3.1-4.5); ALKALINE PHOSPHATASE 107 U/L (45-117); BUN 21 mg/dl (7-24); CHLORIDE 101 mmol/L (98-107); CHOLESTEROL 91 mg/dL (<200); CREATININE 1.26 mg/dL (0.70-1.30); HDL CHOLESTEROL 38 mg/dl (40-60); LDL CHOLESTEROL 39 mg/dL (9-159); PHOSPHOROUS 3.5 mg/dL (2.5-4.9); POTASSIUM 4.3 mmol/L (3.5-5.1); SGOT/AST 21 IU/L (3-35); SGPT/ALT 26 U/L (12-78); SODIUM 133 mmol/L (136-145); TOTAL PROTEIN 6.8 gm/dL (6.4-8.2); TRIGLYCERIDES 68 mg/dl (<150); VLDL CHOLESTEROL 14 mg/dL (6-40)
[2019-04-30 07:49] LABS: VITAMIN D, 25-HYDROXY 56.3 ng/mL (30-100)
[2019-04-30 08:00] VITALS: BP 129/50
--- NOTE | 2019-04-30 09:00 | NUR ---
Medical Language Specialist in to talk to patient. Patient states lives at home with . There are no steps in the home. Physician: danielle Pharmacy: [facility] health services: none Patient's level of ADLs: MODERATE ASSIST Patient has working utilities: all working DME: cane Follow-up physician's appointment after d/c: will be made by hospitalist nurse director upon discharge Does patient want to access PORTAL?: no Discharge plan discussed with patient, and son, states patient lives at home with her, he needs assistance with adls and ambulation with a cane, she states he has become weaker lately, discussed with them a short term fci for rehab prior to returning home, they declined, also discussed with them VNA and stated patient is scheduled to go to [facility] on 05/07/19 for a p procedure. she stated she would rather wait and schedule VNA when patient is discharged home from [facility], case management will follow for any other needs. ARELIS SANTOS
[2019-04-30 12:00] VITALS: BP 123/52
--- NOTE | 2019-04-30 15:38 | NUR ---
PHYSICAL THERAPY Screen received pt from home with admitted with chest pain, pt was recently admited 04/21-04/23 with same complaint. Please consult PT if pt's status has declined especially with recent admit prior to this admission, thank you. Amalia Molina PT
--- NOTE | 2019-04-30 15:49 | NUR ---
Nursing screen received and chart reveiwed. Patient has had two recent admissions with chest pain. Recommend Occupational Therapy evaluation if patient should have a decline from baseline ADLs levels. Thank you. May Blake OTr/l
[2019-04-30 16:00] VITALS: BP 119/65; BP 126/62
--- NOTE | 2019-04-30 19:39 | NUR ---
PATIENT LYING IN BED, WITH FAMILY AT BEDSIDE. PATIENT DENIES ANY PAIN AT THIS TIME. PATIENT STATED HE WENT FOR A WALK TODAY IN THE HALLWAY. PATIENT LEFT WITH BED ALARM ON AND CALL LIGHT IN REACH.
[2019-04-30 20:00] VITALS: BP 108/60
--- NOTE | 2019-04-30 23:45 | NUR ---
24 HR chart check completed.
[2019-05-01] VITALS: BP 118/63
[2019-05-01 07:08] LABS: BASO # 0.1 10*3/uL (0.0-0.1); BASO % 0.7 % (0.0-1.0); EOS # 0.2 10*3/uL (0.0-0.4); EOS % 2.7 % (1.0-4.0); HEMATOCRIT 40.7 % (42.0-52.0); HEMOGLOBIN 13.2 g/dl (14.0-18.0); LYMPH # 1.5 10*3/uL (1.3-4.4); LYMPH % 19.9 % (27.0-41.0); MEAN CELL VOLUME 90.8 fl (80.0-94.0); MEAN CORPUSCULAR HGB 29.5 pg (27.0-31.0); MEAN CORPUSCULAR HGB CONC 32.4 g/dl (33.0-37.0); MEAN PLATELET VOLUME 10.4 fl (9.6-12.3); MONO # 0.8 10*3/uL (0.1-1.0); MONO % 10.7 % (3.0-9.0); NEUT # 4.9 10*3/uL (2.3-7.9); NEUT % 65.3 % (47.0-73.0); PLATELET COUNT AUTOMATED 264 10*3/uL (130-400); RED BLOOD COUNT 4.48 10*6/uL (4.50-5.90); RED CELL DISTRI WIDTH 14.2 % (0-14.5); WHITE BLOOD COUNT 7.5 10*3/uL (4.8-10.8)
[2019-05-01 07:33] LABS: BUN 23 mg/dl (7-24); CHLORIDE 99 mmol/L (98-107); CREATININE 1.31 mg/dL (0.70-1.30); POTASSIUM 4.3 mmol/L (3.5-5.1); SODIUM 132 mmol/L (136-145)
[2019-05-01 07:40] VITALS: BP 112/68
--- NOTE | 2019-05-01 07:40 | NUR ---
ASSESSMENT COMPLETED AND DOCUMENTED. PT SLEEPING UPON ENTERING ROOM, AWAKENED EASILY. NO SIGN OF ANY DISTRESS. FAMILY MEMEMBERS PRESENT AT BEDSIDE. EDITH ANDREWS SPMAO
[2019-05-01 08:00] VITALS: BP 110/66
--- NOTE | 2019-05-01 09:00 | NUR ---
case management visits with patient, and daughter present, stated patient would be returning home with her and denies any home needs
[2019-05-01 11:50] VITALS: BP 123/59
--- NOTE | 2019-05-01 11:50 | NUR ---
ASSESSMENT COMPLETED AND DOCUMENTED. PT SITTING IN CHAIR, EATING LUNCH. FAMILY PRESENT IN ROOM. NO SIGNS OF PAIN OR DISTRESS AT THIS TIME. EDITH ANDREWS SPLEXICC
[2019-05-01] MEDS ORDERED: CIPRO500 MG PO (13:01)
[2019-05-01] MEDS ORDERED: LOSARTAN POTASS25 M1 PO (13:01)
--- NOTE | 2019-05-01 13:22 | NUR ---
PATIENT HAS LEFT THE FLOOR.
== END 2019-05-01 13:22 | disposition home or self-care (01) | DRG 391 ==
LOC: ED 12:38 → EDHOLD 17:49 → 4E 17:49
PROVIDERS: Emergency Medicine; Internal Medicine; ADMIT Internal Medicine
DX: K30 Functional dyspepsia (principal); I21.4 Non-ST elevation (NSTEMI) myocardial infarction; N39.0 Urinary tract infection, site not specified; E87.1 Hypo-osmolality and hyponatremia; I13.0 Hypertensive heart and chronic kidney disease with heart failure and stage 1 through stage 4 chronic kidney disease, or unspecified chronic kidney disease; I50.22 Chronic systolic (congestive) heart failure; K21.9 Gastro-esophageal reflux disease without esophagitis; I35.0 Nonrheumatic aortic (valve) stenosis; D64.9 Anemia, unspecified; F03.90 Unspecified dementia, unspecified severity, without behavioral disturbance, psychotic disturbance, mood disturbance, and anxiety; M81.0 Age-related osteoporosis without current pathological fracture; E03.9 Hypothyroidism, unspecified; N18.3 Chronic kidney disease, stage 3 (moderate); I44.7 Left bundle-branch block, unspecified; I25.2 Old myocardial infarction; Z88.5 Allergy status to narcotic agent; Z91.018 Allergy to other foods; Z79.82 Long term (current) use of aspirin; Z79.899 Other long term (current) drug therapy; Z96.612 Presence of left artificial shoulder joint; Z86.73 Personal history of transient ischemic attack (TIA), and cerebral infarction without residual deficits; Z98.49 Cataract extraction status, unspecified eye; Z96.1 Presence of intraocular lens; Z82.3 Family history of stroke; Z82.0 Family history of epilepsy and other diseases of the nervous system

== ENCOUNTER 2019-07-30 07:46 | Inpatient (IN) | payer MEDICARE ==
[2019-07-30] VITALS (7 sets, daily range): BP systolic 108–150; BP diastolic 42–81
[~2019-07-30] VITALS: Ht 180.3 cm; Wt 77.6 kg
[~2019-07-30 07:46] MED LIST changes: +LOSARTAN POTASS25 M1 PO
--- NOTE | 2019-07-30 08:11 | NUR ---
SPOKE WITH THE PT'S IN THE LOBBY, SHE STATES PT ROLLED OUT OF BED THIS AM, REPORTS HE IS JUST NOT HIMSELF TODAY, SHE HAD TO CALL THEY SON TO HELP GET HIM DRESSED, PT SELF CATH, SHE REPORTS HE IS SLIGHT FORGETFUL, HX DEMENTIA. PT IS COOPERTIVE AND PLEASENT, PT IS ABLE TO FOLLOW COMANDS. ORINTED TO SELF AND PLACE UNAWARE OF THE DATE AT THIS TIME. PT WAS CATH FOR CLEAR, YELLOW URINE, PT TOLERATED WELL.
[2019-07-30 08:13] LABS: CLARITY SL CLOUDY (CLEAR); COLOR YELLOW (YELLOW); GLUCOSE NEGATIVE (NEGATIVE)
[2019-07-30 08:14] LABS: BASO % 0.3 % (0.0-1.0); EOS % 0.1 % (1.0-4.0); HEMATOCRIT 37.1 % (42.0-52.0); LYMPH # 0.6 10*3/uL (1.3-4.4); LYMPH % 4.2 % (27.0-41.0); MEAN CELL VOLUME 86.3 fl (80.0-94.0); MEAN CORPUSCULAR HGB 28.6 pg (27.0-31.0); MEAN CORPUSCULAR HGB CONC 33.2 g/dl (33.0-37.0); MEAN PLATELET VOLUME 9.4 fl (9.6-12.3); MONO # 1.3 10*3/uL (0.1-1.0); MONO % 8.5 % (3.0-9.0); NEUT # 12.9 10*3/uL (2.3-7.9); NEUT % 86.6 % (47.0-73.0); PLATELET COUNT AUTOMATED 186 10*3/uL (130-400); RED CELL DISTRI WIDTH 16.2 % (0-14.5); WHITE BLOOD COUNT 14.9 10*3/uL (4.8-10.8)
[2019-07-30 08:14] LABS: BACTERIA 2+; BILIRUBIN NEGATIVE (NEGATIVE); BLOOD 1+ (NEGATIVE); KETONE NEGATIVE (NEGATIVE); LEUKO ESTERASE 2+ (NEGATIVE); NITRITE POSITIVE (NEGATIVE); PH 6.5 (5.0-9.0); UROBILINOGEN 0.2 E.U./dl (0.2-1.0)
[2019-07-30 08:26] LABS: ACT PARTIAL THROMBO TIME 27.2 SECONDS (20.0-32.1)
[2019-07-30 08:31] LABS: ALBUMIN 3.3 gm/dl (3.1-4.5); ALKALINE PHOSPHATASE 77 U/L (45-117); BUN 21 mg/dl (7-24); CHLORIDE 102 mmol/L (98-107); LIPASE 75 U/L (73-393); POTASSIUM 3.5 mmol/L (3.5-5.1); SGOT/AST 26 IU/L (3-35); SGPT/ALT 22 U/L (12-78); SODIUM 134 mmol/L (136-145); TOTAL PROTEIN 6.9 gm/dL (6.4-8.2)
--- NOTE | 2019-07-30 09:40 | NUR ---
PT IS ATTEMPTED TO GET UP OUT OF BED AT THE BOTTOM, SIDE RAILS UP. PT WAS ASSISITED BACK TO BED.
[2019-07-30] MEDS ORDERED: KEFLEX500 M1 PO (10:10)
--- NOTE | 2019-07-30 10:12 | NUR ---
PT WAS TRYING TO GET OUT OF BED AGAIN, PT WAS ASSITED BACK. PT STATES HE DOES NOT KNOW WHERE HERE WAS GOING. PT WAS RE ORINETED, CALL LIGHT PLACE IN HAND, IN VIEW OF STAFF. PT HAS A BED PLACEDMENT WAITING FOR STAFF CALL, PT BEING MOVED AROUND ON THE FLOOR AT THE PRESENT.
--- NOTE | 2019-07-30 10:50 | NUR ---
Time: 1050 A 89 year old MALE admitted to 5E under services of ENRIQUE GUZMAN DO. Pt. arrived via bed from ER. Chief complaint: FELL OUT OF BED, INCREASED CONFUSION PER . MY WARD
[2019-07-30] MEDS ORDERED: PLAVIX75 M1 PO (11:22)
[2019-07-30] MEDS ORDERED: HEARTBURN RELIE20 MG PO (11:23)
[2019-07-30] MEDS ORDERED: FINASTERIDE5 M1 PO (11:24)
[2019-07-30] MEDS ORDERED: FLOMAX0.4 MG PO (11:24)
--- NOTE | 2019-07-30 11:30 | NUR ---
PHYSICAL THERAPY Physical Therapy evaluation completed on 5E with full evaluation to follow. Low complexity skilled PT evaluation per chart review and evaluation, [id number]. Recommend physical therapy per plan of care and Home Health with 24hr supervision and assist upon discharge. Thank you for this referral. Re Early,PT,DPT
--- NOTE | 2019-07-30 12:55 | NUR ---
STRAIGHT CATH'ED AT THIS TIME FOR 400CC OF DARK MARIMAR COLORED URINE. PATIENT TOLERATED WELL.
--- NOTE | 2019-07-30 13:00 | NUR ---
AFTER SPEAKING WITH AND TERESO RN, PT'S SON IS ALLOWED TO STAY THE NIGHT DUE TO HIS INCREASED SUNDOWNER'S & DEMENTIA. NOTIFIED PATIENT'S SON & HE WILL BE HERE AROUND 8PM.
--- NOTE | 2019-07-30 15:27 | NUR ---
PATIENT BACK ON FLOOR FROM MODIFIED BARIUM SWALLOW.
--- NOTE | 2019-07-30 15:36 | NUR ---
SPEECH PATHOLOGY Modified barium swallow completed as per orders due to difficulty swallowing. Patient's history includes UTI, dementia, GERD, TIA, HTN, [place], thyroid disease. Patient was confused but cooperative for the exam. He was assessed with puree, solids and thin liquid taken by cup. Results revealed a mild pharyngeal phase dysphagia characterized by silent aspiration with liquids. Patient took several sips of liquid and aspiration did not occur on every sip. Recommend regular diet and nectar thick liquids for safety. Follow up therapy is recommended focusing on pharyngeal strengthening exercises and education to ensure safe tolerance of diet. Results and marni. were shared with patient's nurse who verbalized understanding. Dictated report to follow. Thank you for this referral. EVONNE JO MSCCC-PUBLIC SPACE ATTENDANT
--- NOTE | 2019-07-30 18:30 | NUR ---
PATIENT STRAIGHT CATHED FOR 250CC CLEAR MARIMAR URINE. TOLERATED WELL. SITTING UP IN MARLI CHAIR AT THIS TIME.
--- NOTE | 2019-07-30 19:15 | NUR ---
PATIENT IS SITTING UP IN MARLI-CHAIR, CHAIR ALARM INTACT. NO OVERT DISTRESS NOTED. RESP ARE EASY AND REGULAR. PATIENT IS CONFUSED BUT VOICED NO COMPLAINTS. CALL LIGHT WITHIN REACH
--- NOTE | 2019-07-30 19:18 | NUR ---
NOTIFIED RESIDENT THAT PATIENT'S MED REC IS UP TO DATE.
--- NOTE | 2019-07-30 20:00 | NUR ---
PATIENT SON IS HERE AND IN ROOM, PATIENT ASSISTED TO BED. BED ISLOCKED IN LOWEST POSITION, BED ALARM MAINTAINED. CALL LIGHT WITHIN REACH
--- NOTE | 2019-07-30 22:30 | NUR ---
PATIENT STRAIGHT CATH'D AT THIS TIME, POLICY AND PROCEDURE FOLLOWED. 200CC OF LIGHT MARIMAR/FOUL SMELLING URINE OBTAINED. PATIENT TOLERATED PROCEDURE WELL. ROWDY-CARE PROVIDED AFTERWARDS. BED LOCKED IN LOWEST POSITION, ALARM MAINTAINED. CALL LIGHT WITHIN REACH
[2019-07-31] VITALS: BP 137/50
--- NOTE | 2019-07-31 02:56 | NUR ---
PATIENT STRAIGHT CATH'D AT THIS TIME PER WISHES. POLICY AND PROCEDURES FOLLOWED, PATIENT TOLERATED WELL. 300 CC OF LIGHT MARIMAR/FOUL SMELLING URINE OBTAINED. ROWDY-CARE PROVIDED. CALL LIGHT WITHI NREACH
--- NOTE | 2019-07-31 05:30 | NUR ---
PATIENTS SON LEFT, HAD TO GO TO WORK. BED ALARM IS MAINTAINED, PATIENT IS SLEEPING EYES CLSOED. NO DISTRESS NOTED.
[2019-07-31 06:26] LABS: BASO % 0.3 % (0.0-1.0); EOS # 0.1 10*3/uL (0.0-0.4); EOS % 0.9 % (1.0-4.0); HEMATOCRIT 35.6 % (42.0-52.0); LYMPH # 1.4 10*3/uL (1.3-4.4); LYMPH % 10.1 % (27.0-41.0); MEAN CELL VOLUME 86.8 fl (80.0-94.0); MEAN CORPUSCULAR HGB 28.5 pg (27.0-31.0); MEAN CORPUSCULAR HGB CONC 32.9 g/dl (33.0-37.0); MEAN PLATELET VOLUME 9.8 fl (9.6-12.3); MONO # 1.1 10*3/uL (0.1-1.0); MONO % 7.8 % (3.0-9.0); NEUT % 80.3 % (47.0-73.0); PLATELET COUNT AUTOMATED 165 10*3/uL (130-400); RED CELL DISTRI WIDTH 16.3 % (0-14.5); WHITE BLOOD COUNT 13.7 10*3/uL (4.8-10.8)
[2019-07-31 06:57] LABS: BUN 21 mg/dl (7-24); CHLORIDE 100 mmol/L (98-107); CREATININE 0.91 mg/dL (0.70-1.30); POTASSIUM 3.6 mmol/L (3.5-5.1); SODIUM 134 mmol/L (136-145)
[2019-07-31 08:00] VITALS: BP 155/53
--- NOTE | 2019-07-31 09:00 | NUR ---
STRAIGHT CATHED AT THIS TIME FOR 100CC OF DARK MARIMAR URINE. PT TOLERATED WELL.
--- NOTE | 2019-07-31 09:40 | NUR ---
SPEECH PATHOLOGY Patient was seen for treatment this am during breakfast meal. He was confused but sitting upright in chair feeding himself. He consumed solid food and nectar thick liquids by cup. Excellent intake of meal was displayed. He showed no overt s/s aspiration. MBS yesterday revealed silent aspiration with thin liquids therefore recommend he remain on nectar thick liquids for safety. Regular diet and nectar thick liquid written on wipe off board in room. Thickit is present in room. Continue therapy plan. EVONNE JO MSCCC-LABORER GENERAL
[2019-07-31 12:00] VITALS: BP 145/55
--- NOTE | 2019-07-31 14:30 | NUR ---
PATIENT STRAIGHT CATHED AT THIS TIME FOR 600CC OF STRAW COLORED URINE WITH SEDIMENT; PT TOLERATED WELL.
--- NOTE | 2019-07-31 15:58 | NUR ---
PATIENT IS INCREASINGLY CONFUSED. SITTING OUT AT NURSING STATION IN MARLI-CHAIR AT THIS TIME. PLEASANT.
[2019-07-31 16:00] VITALS: BP 139/50
[2019-07-31 20:00] VITALS: BP 145/50
--- NOTE | 2019-07-31 20:06 | NUR ---
PATIENT SON REQUESTING PATIENT BE GIVEN SOMETHING TO HELP HIM SLEEP. NOTIFIED. DR. ALLEN
--- NOTE | 2019-07-31 21:06 | NUR ---
DRAKE MEDICATED WITH RESTORIL AT THIS TIME. WILL CHECK EFFECTIVENESS.
--- NOTE | 2019-07-31 22:22 | NUR ---
PATIENT SLEEPING, RESPIRATIONS EASY, NON LABORED. NO SIGNS OF DISTRESS. SON IN ROOM WITH PATIENT. BED IN LOWEST POSITION,CALL LIGHT WITHIN REACH. WILL CONTINUE TO MONITOR.
--- NOTE | 2019-07-31 23:05 | NUR ---
PATIENT SLEEPING, EYES CLOSED. NO OVERT DISTRESS NOTED. RESP ARE EASY AND REGULAR. INFORMED BY PRIOR NURSE THAT PATIENT WAS STRAIGHT CATH'D AT 2230 WITH NO URINE PRODUCED. PATIENTS SON IS SITTING IN RECLINER. BED IS LOCKED IN LOWEST POSITION, BED ALARM MAINTAINED. CALL LIGHT WITHIN REACH.
[2019-08-01] VITALS: BP 141/72
--- NOTE | 2019-08-01 02:40 | NUR ---
PATIENT STRAIGHT CATH'D AT THIS TIME. POLICY AND PROCEDURES FOLLOWED. PATIENT TOLERATED WELL. 900CC OF LIGHT MARIMAR URINE PRODUCED. ROWDY-CARE PROVIDED. BED IS LOCKED IN LOWEST POSITION, ALARM MAINTAINED. CALL LIGHT WITHIN REACH
--- NOTE | 2019-08-01 04:00 | NUR ---
PATIENT ASLEEP, EYES CLOSED. NO DISTRESS NOTED. CALL LIGHT WITHIN REACH
[2019-08-01 06:17] LABS: BASO % 0.2 % (0.0-1.0); EOS # 0.3 10*3/uL (0.0-0.4); EOS % 3.3 % (1.0-4.0); HEMATOCRIT 37.8 % (42.0-52.0); LYMPH % 12.4 % (27.0-41.0); MEAN CELL VOLUME 88.3 fl (80.0-94.0); MEAN CORPUSCULAR HGB CONC 32.8 g/dl (33.0-37.0); MEAN PLATELET VOLUME 9.6 fl (9.6-12.3); MONO # 0.8 10*3/uL (0.1-1.0); MONO % 9.6 % (3.0-9.0); PLATELET COUNT AUTOMATED 170 10*3/uL (130-400); RED BLOOD COUNT 4.28 10*6/uL (4.50-5.90); RED CELL DISTRI WIDTH 16.6 % (0-14.5); WHITE BLOOD COUNT 8.1 10*3/uL (4.8-10.8)
[2019-08-01 06:47] LABS: BUN 22 mg/dl (7-24); CHLORIDE 100 mmol/L (98-107); CREATININE 1.01 mg/dL (0.70-1.30); POTASSIUM 3.7 mmol/L (3.5-5.1); SGOT/AST 30 IU/L (3-35); SGPT/ALT 23 U/L (12-78); SODIUM 137 mmol/L (136-145); TOTAL PROTEIN 6.9 gm/dL (6.4-8.2)
[2019-08-01 06:48] LABS: ALKALINE PHOSPHATASE 69 U/L (45-117)
[2019-08-01 08:00] VITALS: BP 128/52
[2019-08-01] MEDS ORDERED: CEFUROXIME AXE250 MG PO (11:17)
--- NOTE | 2019-08-01 11:37 | NUR ---
Discharge instructions reviewed with patient/family. Patient receptive and verbalizes understanding. Follow-up care arranged. Written instructions given to patient/family. PATIENT AWAITING DISCHARGE HOME WITH HIS SON AFTER HIS BRINGS IN SOME CLOTHES. TAYE RAYO
--- NOTE | 2019-08-01 12:24 | NUR ---
PATIENT DISCHARGED TO FRONT ER LOBBY BY WHEELCHAIR, ACCOMPANIED BY RN, FOR TRANSPORT HOME BY PRIVATE VEHICLE WITH HIS .
== END 2019-08-01 11:37 | disposition home or self-care (01) | DRG 689 ==
LOC: ED 07:46 → 5E 08:49 → EDHOLD 08:49 → 5E 09:31
PROVIDERS: Family Medicine; Student in an Organized Health Care Education/Training Program; ADMIT Emergency Medicine
PROC: BD1BYZZ Fluoroscopy of Mouth/Oropharynx using Other Contrast (ICD-10-PCS; principal; 2019-07-30)
DX: N39.0 Urinary tract infection, site not specified (principal); G93.41 Metabolic encephalopathy; E87.1 Hypo-osmolality and hyponatremia; I13.0 Hypertensive heart and chronic kidney disease with heart failure and stage 1 through stage 4 chronic kidney disease, or unspecified chronic kidney disease; I50.22 Chronic systolic (congestive) heart failure; R31.9 Hematuria, unspecified; K44.9 Diaphragmatic hernia without obstruction or gangrene; M81.0 Age-related osteoporosis without current pathological fracture; E03.9 Hypothyroidism, unspecified; K21.9 Gastro-esophageal reflux disease without esophagitis; K90.0 Celiac disease; N18.3 Chronic kidney disease, stage 3 (moderate); F03.90 Unspecified dementia, unspecified severity, without behavioral disturbance, psychotic disturbance, mood disturbance, and anxiety; I44.7 Left bundle-branch block, unspecified; D64.9 Anemia, unspecified; I73.9 Peripheral vascular disease, unspecified; B96.20 Unspecified Escherichia coli [E. coli] as the cause of diseases classified elsewhere; R13.12 Dysphagia, oropharyngeal phase; D72.810 Lymphocytopenia; Z95.2 Presence of prosthetic heart valve; Z88.8 Allergy status to other drugs, medicaments and biological substances; Z91.018 Allergy to other foods; Z79.82 Long term (current) use of aspirin; Z79.899 Other long term (current) drug therapy; Z98.49 Cataract extraction status, unspecified eye; Z96.1 Presence of intraocular lens; Z96.612 Presence of left artificial shoulder joint; Z82.3 Family history of stroke; Z82.0 Family history of epilepsy and other diseases of the nervous system; Z86.73 Personal history of transient ischemic attack (TIA), and cerebral infarction without residual deficits; I25.2 Old myocardial infarction

== ENCOUNTER 2019-08-20 13:48 | Emergency (ER) | payer MEDICARE ==
[~2019-08-20] VITALS: Ht 182.8 cm; Wt 77.1 kg
[2019-08-20 14:25] LABS: ACT PARTIAL THROMBO TIME 27.3 SECONDS (20.0-32.1)
== END 2019-08-20 15:21 | disposition home or self-care (01) ==
LOC: ED 13:48
PROVIDERS: Emergency Medicine
DX: R00.1 Bradycardia, unspecified (principal); I12.9 Hypertensive chronic kidney disease with stage 1 through stage 4 chronic kidney disease, or unspecified chronic kidney disease; N18.3 Chronic kidney disease, stage 3 (moderate); E03.9 Hypothyroidism, unspecified; I25.2 Old myocardial infarction; K21.9 Gastro-esophageal reflux disease without esophagitis; Z86.73 Personal history of transient ischemic attack (TIA), and cerebral infarction without residual deficits; Z90.89 Acquired absence of other organs; Z96.612 Presence of left artificial shoulder joint; Z98.890 Other specified postprocedural states; Z79.899 Other long term (current) drug therapy; Z88.5 Allergy status to narcotic agent

== ENCOUNTER → 2019-08-20 | Outpatient (CLI) | payer MEDICARE ==
[~2019-08-20] MED LIST changes: +CEFUROXIME AXE250 MG PO; +FINASTERIDE5 M1 PO; +FLOMAX0.4 MG PO; +HEARTBURN RELIE20 MG PO; +KEFLEX500 M1 PO; +PLAVIX75 M1 PO
[2019-08-20 13:48] LABS: BASO % 0.5 % (0.0-1.0); EOS # 0.1 10*3/uL (0.0-0.4); EOS % 1.4 % (1.0-4.0); HEMATOCRIT 38.4 % (42.0-52.0); LYMPH # 1.3 10*3/uL (1.3-4.4); LYMPH % 22.8 % (27.0-41.0); MEAN CELL VOLUME 91.9 fl (80.0-94.0); MEAN CORPUSCULAR HGB 28.9 pg (27.0-31.0); MEAN CORPUSCULAR HGB CONC 31.5 g/dl (33.0-37.0); MEAN PLATELET VOLUME 9.5 fl (9.6-12.3); MONO # 0.8 10*3/uL (0.1-1.0); MONO % 13.6 % (3.0-9.0); NEUT # 3.5 10*3/uL (2.3-7.9); NEUT % 61.2 % (47.0-73.0); PLATELET COUNT AUTOMATED 219 10*3/uL (130-400); RED BLOOD COUNT 4.18 10*6/uL (4.50-5.90); RED CELL DISTRI WIDTH 16.8 % (0-14.5); WHITE BLOOD COUNT 5.8 10*3/uL (4.8-10.8)
[2019-08-20 14:22] LABS: BUN 26 mg/dl (7-24); CHLORIDE 104 mmol/L (98-107); CREATININE 1.12 mg/dL (0.70-1.30); POTASSIUM 4.2 mmol/L (3.5-5.1); SODIUM 136 mmol/L (136-145)
== END | disposition home or self-care (01) ==
LOC: CARD 12:00 → LAB 12:02
PROVIDERS: Thoracic Surgery (Cardiothoracic Vascular Surgery)
DX: I51.7 Cardiomegaly (principal); I34.8 Other nonrheumatic mitral valve disorders; I44.7 Left bundle-branch block, unspecified; R00.1 Bradycardia, unspecified; Z95.3 Presence of xenogenic heart valve

== ENCOUNTER 2019-08-22 18:10 | Emergency (ER) | payer MEDICARE ==
[~2019-08-22] VITALS: Wt 77.1 kg
[2019-08-22 19:19] LABS: BASO % 0.3 % (0.0-1.0); EOS # 0.1 10*3/uL (0.0-0.4); EOS % 1.4 % (1.0-4.0); HEMATOCRIT 38.8 % (42.0-52.0); LYMPH # 1.3 10*3/uL (1.3-4.4); LYMPH % 18.3 % (27.0-41.0); MEAN CELL VOLUME 91.3 fl (80.0-94.0); MEAN CORPUSCULAR HGB 28.9 pg (27.0-31.0); MEAN CORPUSCULAR HGB CONC 31.7 g/dl (33.0-37.0); MEAN PLATELET VOLUME 9.1 fl (9.6-12.3); MONO # 0.8 10*3/uL (0.1-1.0); MONO % 11.3 % (3.0-9.0); NEUT # 4.8 10*3/uL (2.3-7.9); NEUT % 68.1 % (47.0-73.0); PLATELET COUNT AUTOMATED 222 10*3/uL (130-400); RED BLOOD COUNT 4.25 10*6/uL (4.50-5.90); RED CELL DISTRI WIDTH 16.6 % (0-14.5); WHITE BLOOD COUNT 7.1 10*3/uL (4.8-10.8)
[2019-08-22 19:38] LABS: ALBUMIN 3.2 gm/dl (3.1-4.5); ALKALINE PHOSPHATASE 86 U/L (45-117); BUN 26 mg/dl (7-24); CHLORIDE 107 mmol/L (98-107); CREATININE 1.22 mg/dL (0.70-1.30); LIPASE 144 U/L (73-393); POTASSIUM 4.6 mmol/L (3.5-5.1); SGOT/AST 26 IU/L (3-35); SGPT/ALT 27 U/L (12-78); SODIUM 139 mmol/L (136-145); TOTAL PROTEIN 7.6 gm/dL (6.4-8.2)
[2019-08-22 19:40] LABS: TROPONIN I < 0.015 ng/ml (<0.045)
[2019-08-22 20:43] LABS: BILIRUBIN NEGATIVE (NEGATIVE); CLARITY SL CLOUDY (CLEAR); COLOR YELLOW (YELLOW); GLUCOSE NEGATIVE (NEGATIVE); KETONE NEGATIVE (NEGATIVE); SPECIFIC GRAVITY 1.015 (1.005-1.030)
[2019-08-22 20:44] LABS: BLOOD TRACE-LYSED (NEGATIVE); LEUKO ESTERASE 2+ (NEGATIVE); NITRITE POSITIVE (NEGATIVE); UROBILINOGEN 0.2 E.U./dl (0.2-1.0)
[2019-08-22 20:50] LABS: BACTERIA 3+; MUCOUS TRACE; RBC 0-2 rbc/hpf (0-2); WBC TNTC wbc/hpf (0-5)
== END 2019-08-22 21:36 | disposition home or self-care (01) ==
LOC: ED 18:10
PROVIDERS: Physician Assistant
DX: R19.7 Diarrhea, unspecified (principal); I10 Essential (primary) hypertension; Z79.899 Other long term (current) drug therapy; Z88.5 Allergy status to narcotic agent; Z79.82 Long term (current) use of aspirin; Z88.8 Allergy status to other drugs, medicaments and biological substances

== ENCOUNTER → 2019-08-23 | Outpatient (CLI) | payer MEDICARE | END | disposition home or self-care (01) | LOC: LAB 08-22 00:01 | DX: K52.1 Toxic gastroenteritis and colitis (principal); T36.95XA Adverse effect of unspecified systemic antibiotic, initial encounter; Y92.89 Other specified places as the place of occurrence of the external cause ==

== ENCOUNTER → 2019-09-04 | Outpatient (CLI) | payer MEDICARE | END | disposition home or self-care (01) | LOC: US 07-22 14:00 | DX: N28.89 Other specified disorders of kidney and ureter (principal) ==

== ENCOUNTER 2019-09-25 09:35 | Inpatient (IN) | payer MEDICARE ==
[~2019-09-25] VITALS: Ht 182.8 cm; Wt 77.3 kg
[2019-09-25 09:36] VITALS: BP 121/55
[2019-09-25 10:25] LABS: BASO # 0.1 10*3/uL (0.0-0.1); BASO % 0.3 % (0.0-1.0); EOS % 0.2 % (1.0-4.0); HEMATOCRIT 39.5 % (42.0-52.0); LYMPH # 0.7 10*3/uL (1.3-4.4); LYMPH % 3.5 % (27.0-41.0); MEAN CORPUSCULAR HGB 29.6 pg (27.0-31.0); MEAN CORPUSCULAR HGB CONC 32.9 g/dl (33.0-37.0); MEAN PLATELET VOLUME 9.9 fl (9.6-12.3); MONO % 5.5 % (3.0-9.0); NEUT # 16.8 10*3/uL (2.3-7.9); NEUT % 89.9 % (47.0-73.0); PLATELET COUNT AUTOMATED 183 10*3/uL (130-400); RED BLOOD COUNT 4.39 10*6/uL (4.50-5.90); RED CELL DISTRI WIDTH 15.7 % (0-14.5); WHITE BLOOD COUNT 18.7 10*3/uL (4.8-10.8)
[2019-09-25 10:42] LABS: ALBUMIN 3.4 gm/dl (3.1-4.5); ALKALINE PHOSPHATASE 98 U/L (45-117); BUN 23 mg/dl (7-24); CHLORIDE 99 mmol/L (98-107); CREATININE 1.33 mg/dL (0.70-1.30); LIPASE 97 U/L (73-393); POTASSIUM 4.1 mmol/L (3.5-5.1); SGOT/AST 24 IU/L (3-35); SGPT/ALT 20 U/L (12-78); SODIUM 134 mmol/L (136-145)
[2019-09-25 10:48] LABS: BACTERIA 3+; BILIRUBIN NEGATIVE (NEGATIVE); BLOOD TRACE-INTACT (NEGATIVE); CLARITY SL CLOUDY (CLEAR); COLOR YELLOW (YELLOW); GLUCOSE NEGATIVE (NEGATIVE); KETONE NEGATIVE (NEGATIVE); LEUKO ESTERASE TRACE (NEGATIVE); NITRITE POSITIVE (NEGATIVE); PH 8.5 (5.0-9.0); SPECIFIC GRAVITY 1.015 (1.005-1.030); UROBILINOGEN 0.2 E.U./dl (0.2-1.0); WBC 21-30 wbc/hpf (0-5)
[2019-09-25 10:52] LABS: TROPONIN I < 0.015 ng/ml (<0.045)
[2019-09-25 11:29] VITALS: BP 114/50
[2019-09-25 12:29] VITALS: BP 106/80
[2019-09-25 16:00] VITALS: BP 110/74
[2019-09-25 20:00] VITALS: BP 112/48
[2019-09-26] VITALS: BP 127/65
[2019-09-26 06:32] LABS: BASO % 0.2 % (0.0-1.0); EOS # 0.3 10*3/uL (0.0-0.4); EOS % 1.6 % (1.0-4.0); HEMATOCRIT 34.3 % (42.0-52.0); LYMPH # 1.9 10*3/uL (1.3-4.4); LYMPH % 12.2 % (27.0-41.0); MEAN CELL VOLUME 92.2 fl (80.0-94.0); MEAN CORPUSCULAR HGB 29.3 pg (27.0-31.0); MEAN CORPUSCULAR HGB CONC 31.8 g/dl (33.0-37.0); MEAN PLATELET VOLUME 9.7 fl (9.6-12.3); MONO # 1.1 10*3/uL (0.1-1.0); MONO % 7.3 % (3.0-9.0); NEUT # 11.9 10*3/uL (2.3-7.9); NEUT % 78.2 % (47.0-73.0); PLATELET COUNT AUTOMATED 153 10*3/uL (130-400); RED BLOOD COUNT 3.72 10*6/uL (4.50-5.90); WHITE BLOOD COUNT 15.2 10*3/uL (4.8-10.8)
[2019-09-26 06:46] LABS: BUN 21 mg/dl (7-24); CHLORIDE 103 mmol/L (98-107); CREATININE 1.12 mg/dL (0.70-1.30); SODIUM 136 mmol/L (136-145)
[2019-09-26 08:00] VITALS: BP 154/57
[2019-09-26 12:00] VITALS: BP 153/57
[2019-09-26 16:00] VITALS: BP 131/66
[2019-09-26 20:00] VITALS: BP 131/58
[2019-09-26] MEDS ORDERED: MIRTAZAPINE7.5 MG PO (21:37)
[2019-09-26] MEDS ORDERED: MELATONIN3 MG PO (21:41)
[2019-09-27] VITALS: BP 153/62
[2019-09-27 08:00] VITALS: BP 146/70
[2019-09-27 09:56] LABS: BASO % 0.3 % (0.0-1.0); EOS # 0.2 10*3/uL (0.0-0.4); EOS % 2.5 % (1.0-4.0); HEMATOCRIT 37.8 % (42.0-52.0); LYMPH # 1.3 10*3/uL (1.3-4.4); LYMPH % 14.6 % (27.0-41.0); MEAN CELL VOLUME 91.3 fl (80.0-94.0); MEAN CORPUSCULAR HGB 29.5 pg (27.0-31.0); MEAN CORPUSCULAR HGB CONC 32.3 g/dl (33.0-37.0); MEAN PLATELET VOLUME 9.3 fl (9.6-12.3); MONO # 0.8 10*3/uL (0.1-1.0); MONO % 8.5 % (3.0-9.0); NEUT # 6.5 10*3/uL (2.3-7.9); NEUT % 73.6 % (47.0-73.0); PLATELET COUNT AUTOMATED 166 10*3/uL (130-400); RED BLOOD COUNT 4.14 10*6/uL (4.50-5.90); RED CELL DISTRI WIDTH 15.8 % (0-14.5); WHITE BLOOD COUNT 8.8 10*3/uL (4.8-10.8)
[2019-09-27 10:06] VITALS: BP 146/70
[2019-09-27 10:19] LABS: BUN 20 mg/dl (7-24); CHLORIDE 104 mmol/L (98-107); SODIUM 138 mmol/L (136-145)
[2019-09-27 12:00] VITALS: BP 151/71
[2019-09-27 16:00] VITALS: BP 129/60
[2019-09-27 20:00] VITALS: BP 134/57
[2019-09-28] VITALS: BP 154/68
[2019-09-28 07:32] LABS: BUN 22 mg/dl (7-24); CHLORIDE 102 mmol/L (98-107); CREATININE 1.09 mg/dL (0.70-1.30); SODIUM 135 mmol/L (136-145)
[2019-09-28 07:35] LABS: BASO % 0.2 % (0.0-1.0); EOS # 0.1 10*3/uL (0.0-0.4); EOS % 1.6 % (1.0-4.0); HEMATOCRIT 37.5 % (42.0-52.0); LYMPH # 1.1 10*3/uL (1.3-4.4); LYMPH % 12.9 % (27.0-41.0); MEAN CELL VOLUME 90.1 fl (80.0-94.0); MEAN CORPUSCULAR HGB 29.3 pg (27.0-31.0); MEAN CORPUSCULAR HGB CONC 32.5 g/dl (33.0-37.0); MEAN PLATELET VOLUME 9.8 fl (9.6-12.3); MONO # 0.8 10*3/uL (0.1-1.0); NEUT # 6.3 10*3/uL (2.3-7.9); NEUT % 75.8 % (47.0-73.0); PLATELET COUNT AUTOMATED 184 10*3/uL (130-400); RED BLOOD COUNT 4.16 10*6/uL (4.50-5.90); RED CELL DISTRI WIDTH 15.6 % (0-14.5); WHITE BLOOD COUNT 8.3 10*3/uL (4.8-10.8)
[2019-09-28 08:00] VITALS: BP 133/73
[2019-09-28] MEDS ORDERED: OMNICEF300 MG PO (11:41)
== END 2019-09-28 13:43 | disposition home or self-care (01) | DRG 698 ==
LOC: ED 09:35 → 5E 11:24 → EDHOLD 11:24 → 5E 11:52
PROVIDERS: Family Medicine; Internal Medicine; Nurse Practitioner Family; ADMIT Internal Medicine
DX: T83.518A Infection and inflammatory reaction due to other urinary catheter, initial encounter (principal); N17.0 Acute kidney failure with tubular necrosis; G93.41 Metabolic encephalopathy; N30.01 Acute cystitis with hematuria; E87.1 Hypo-osmolality and hyponatremia; Z16.11 Resistance to penicillins; Z16.19 Resistance to other specified beta lactam antibiotics; E44.0 Moderate protein-calorie malnutrition; B96.20 Unspecified Escherichia coli [E. coli] as the cause of diseases classified elsewhere; D72.810 Lymphocytopenia; D64.9 Anemia, unspecified; K21.9 Gastro-esophageal reflux disease without esophagitis; G30.9 Alzheimer's disease, unspecified; F02.80 Dementia in other diseases classified elsewhere, unspecified severity, without behavioral disturbance, psychotic disturbance, mood disturbance, and anxiety; M81.0 Age-related osteoporosis without current pathological fracture; N18.3 Chronic kidney disease, stage 3 (moderate); R79.82 Elevated C-reactive protein (CRP); E03.9 Hypothyroidism, unspecified; I12.9 Hypertensive chronic kidney disease with stage 1 through stage 4 chronic kidney disease, or unspecified chronic kidney disease; Z82.3 Family history of stroke; Z82.0 Family history of epilepsy and other diseases of the nervous system; Z88.5 Allergy status to narcotic agent; Z88.8 Allergy status to other drugs, medicaments and biological substances; Z68.26 Body mass index [BMI] 26.0-26.9, adult

== ENCOUNTER 2019-09-28 20:28 | Inpatient (IN) | payer MEDICARE ==
[~2019-09-28] VITALS: Ht 188 cm; Wt 79.5 kg
[~2019-09-28 20:28] MED LIST changes: +MELATONIN3 MG PO; +MIRTAZAPINE7.5 MG PO; +OMNICEF300 MG PO
[2019-09-28 20:37] VITALS: BP 123/77
[2019-09-28 21:47] LABS: BASO % 0.2 % (0.0-1.0); EOS # 0.1 10*3/uL (0.0-0.4); EOS % 0.6 % (1.0-4.0); HEMATOCRIT 34.4 % (42.0-52.0); LYMPH # 0.9 10*3/uL (1.3-4.4); LYMPH % 8.1 % (27.0-41.0); MEAN CELL VOLUME 90.8 fl (80.0-94.0); MEAN CORPUSCULAR HGB 30.1 pg (27.0-31.0); MEAN CORPUSCULAR HGB CONC 33.1 g/dl (33.0-37.0); MEAN PLATELET VOLUME 9.6 fl (9.6-12.3); MONO # 0.9 10*3/uL (0.1-1.0); MONO % 8.4 % (3.0-9.0); NEUT # 8.6 10*3/uL (2.3-7.9); NEUT % 82.1 % (47.0-73.0); PLATELET COUNT AUTOMATED 190 10*3/uL (130-400); RED BLOOD COUNT 3.79 10*6/uL (4.50-5.90); RED CELL DISTRI WIDTH 15.6 % (0-14.5); WHITE BLOOD COUNT 10.5 10*3/uL (4.8-10.8)
[2019-09-28 22:02] LABS: ALKALINE PHOSPHATASE 84 U/L (45-117); BUN 26 mg/dl (7-24); CHLORIDE 101 mmol/L (98-107); CREATININE 1.32 mg/dL (0.70-1.30); POTASSIUM 4.3 mmol/L (3.5-5.1); SGOT/AST 17 IU/L (3-35); SGPT/ALT 17 U/L (12-78); SODIUM 133 mmol/L (136-145); TOTAL PROTEIN 7.3 gm/dL (6.4-8.2)
[2019-09-28 23:12] LABS: BILIRUBIN NEGATIVE (NEGATIVE); BLOOD 3+ (NEGATIVE); CLARITY SL CLOUDY (CLEAR); COLOR YELLOW (YELLOW); GLUCOSE NEGATIVE (NEGATIVE); KETONE NEGATIVE (NEGATIVE); LEUKO ESTERASE 1+ (NEGATIVE); NITRITE NEGATIVE (NEGATIVE); SPECIFIC GRAVITY 1.015 (1.005-1.030); UROBILINOGEN 0.2 E.U./dl (0.2-1.0)
[2019-09-28 23:20] LABS: RBC 21-30 rbc/hpf (0-2)
[2019-09-29 01:22] VITALS: BP 152/69
[2019-09-29 07:29] LABS: BASO % 0.3 % (0.0-1.0); EOS # 0.1 10*3/uL (0.0-0.4); EOS % 1.1 % (1.0-4.0); HEMATOCRIT 34.4 % (42.0-52.0); LYMPH % 9.5 % (27.0-41.0); MEAN CELL VOLUME 89.1 fl (80.0-94.0); MEAN CORPUSCULAR HGB 29.8 pg (27.0-31.0); MEAN CORPUSCULAR HGB CONC 33.4 g/dl (33.0-37.0); MEAN PLATELET VOLUME 9.2 fl (9.6-12.3); MONO % 9.8 % (3.0-9.0); NEUT # 7.8 10*3/uL (2.3-7.9); NEUT % 78.5 % (47.0-73.0); PLATELET COUNT AUTOMATED 185 10*3/uL (130-400); RED BLOOD COUNT 3.86 10*6/uL (4.50-5.90); RED CELL DISTRI WIDTH 15.6 % (0-14.5)
[2019-09-29 07:36] LABS: BUN 20 mg/dl (7-24); CHLORIDE 101 mmol/L (98-107); CREATININE 1.08 mg/dL (0.70-1.30); SODIUM 133 mmol/L (136-145)
[2019-09-29 08:00] VITALS: BP 145/73
[2019-09-29 12:00] VITALS: BP 166/60
[2019-09-29 16:00] VITALS: BP 137/63
[2019-09-29 20:00] VITALS: BP 133/64
[2019-09-29 21:00] VITALS: BP 138/61
[2019-09-30] VITALS: BP 150/52
[2019-09-30 07:11] LABS: BASO % 0.4 % (0.0-1.0); EOS # 0.2 10*3/uL (0.0-0.4); EOS % 2.4 % (1.0-4.0); HEMATOCRIT 36.4 % (42.0-52.0); LYMPH # 0.8 10*3/uL (1.3-4.4); LYMPH % 10.2 % (27.0-41.0); MEAN CELL VOLUME 90.8 fl (80.0-94.0); MEAN CORPUSCULAR HGB 29.4 pg (27.0-31.0); MEAN CORPUSCULAR HGB CONC 32.4 g/dl (33.0-37.0); MEAN PLATELET VOLUME 9.2 fl (9.6-12.3); MONO # 0.8 10*3/uL (0.1-1.0); MONO % 9.9 % (3.0-9.0); NEUT % 76.2 % (47.0-73.0); PLATELET COUNT AUTOMATED 167 10*3/uL (130-400); RED BLOOD COUNT 4.01 10*6/uL (4.50-5.90); RED CELL DISTRI WIDTH 15.6 % (0-14.5); WHITE BLOOD COUNT 7.8 10*3/uL (4.8-10.8)
[2019-09-30 07:22] LABS: ACT PARTIAL THROMBO TIME 32.5 SECONDS (20.0-32.1)
[2019-09-30 07:25] LABS: ALBUMIN 2.8 gm/dl (3.1-4.5); ALKALINE PHOSPHATASE 94 U/L (45-117); BUN 21 mg/dl (7-24); CHLORIDE 99 mmol/L (98-107); CREATININE 1.16 mg/dL (0.70-1.30); POTASSIUM 3.8 mmol/L (3.5-5.1); SGOT/AST 26 IU/L (3-35); SGPT/ALT 22 U/L (12-78); SODIUM 133 mmol/L (136-145); TOTAL PROTEIN 7.4 gm/dL (6.4-8.2)
[2019-09-30 08:00] VITALS: BP 130/50
[2019-09-30 12:00] VITALS: BP 142/50
[2019-09-30 16:00] VITALS: BP 113/63
[2019-10-01] VITALS: BP 135/60
[2019-10-01 07:18] LABS: BASO % 0.3 % (0.0-1.0); EOS # 0.2 10*3/uL (0.0-0.4); HEMATOCRIT 33.5 % (42.0-52.0); LYMPH # 1.1 10*3/uL (1.3-4.4); LYMPH % 13.7 % (27.0-41.0); MEAN CELL VOLUME 89.1 fl (80.0-94.0); MEAN CORPUSCULAR HGB 29.3 pg (27.0-31.0); MEAN CORPUSCULAR HGB CONC 32.8 g/dl (33.0-37.0); MEAN PLATELET VOLUME 9.9 fl (9.6-12.3); MONO # 0.8 10*3/uL (0.1-1.0); MONO % 10.3 % (3.0-9.0); NEUT # 5.7 10*3/uL (2.3-7.9); NEUT % 71.8 % (47.0-73.0); PLATELET COUNT AUTOMATED 164 10*3/uL (130-400); RED BLOOD COUNT 3.76 10*6/uL (4.50-5.90); RED CELL DISTRI WIDTH 15.6 % (0-14.5); WHITE BLOOD COUNT 7.9 10*3/uL (4.8-10.8)
[2019-10-01 07:58] LABS: ALBUMIN 2.6 gm/dl (3.1-4.5); ALKALINE PHOSPHATASE 98 U/L (45-117); BUN 26 mg/dl (7-24); CHLORIDE 103 mmol/L (98-107); CREATININE 1.18 mg/dL (0.70-1.30); POTASSIUM 3.8 mmol/L (3.5-5.1); SGOT/AST 25 IU/L (3-35); SGPT/ALT 22 U/L (12-78); SODIUM 133 mmol/L (136-145); TOTAL PROTEIN 6.7 gm/dL (6.4-8.2)
[2019-10-01 08:00] VITALS: BP 138/52
[2019-10-01 12:00] VITALS: BP 104/58
[2019-10-01 16:00] VITALS: BP 113/64
[2019-10-01 20:00] VITALS: BP 138/69
[2019-10-02] VITALS: BP 157/69
[2019-10-02 06:48] LABS: BASO % 0.4 % (0.0-1.0); EOS # 0.2 10*3/uL (0.0-0.4); EOS % 2.3 % (1.0-4.0); HEMATOCRIT 34.4 % (42.0-52.0); LYMPH # 1.5 10*3/uL (1.3-4.4); MEAN CELL VOLUME 89.6 fl (80.0-94.0); MEAN CORPUSCULAR HGB 29.7 pg (27.0-31.0); MEAN CORPUSCULAR HGB CONC 33.1 g/dl (33.0-37.0); MONO # 0.9 10*3/uL (0.1-1.0); MONO % 10.6 % (3.0-9.0); NEUT # 5.5 10*3/uL (2.3-7.9); NEUT % 67.7 % (47.0-73.0); PLATELET COUNT AUTOMATED 204 10*3/uL (130-400); RED BLOOD COUNT 3.84 10*6/uL (4.50-5.90); RED CELL DISTRI WIDTH 15.7 % (0-14.5); WHITE BLOOD COUNT 8.1 10*3/uL (4.8-10.8)
[2019-10-02 07:02] LABS: BUN 23 mg/dl (7-24); CHLORIDE 105 mmol/L (98-107); CREATININE 1.05 mg/dL (0.70-1.30); SODIUM 135 mmol/L (136-145)
[2019-10-02 08:00] VITALS: BP 156/58
[2019-10-02] MEDS ORDERED: LEVAQUIN500 M2 PO (10:45)
[2019-10-02 12:00] VITALS: BP 133/80
[2019-10-02 16:00] VITALS: BP 140/54
== END 2019-10-02 17:17 | disposition other institution (70) | DRG 689 ==
LOC: ED 20:28 → 5E 09-29 00:32 → EDHOLD 09-29 00:32 → 5E 09-29 01:14
PROVIDERS: Emergency Medicine; Internal Medicine; ADMIT Internal Medicine
DX: N30.00 Acute cystitis without hematuria (principal); G93.41 Metabolic encephalopathy; N17.0 Acute kidney failure with tubular necrosis; E87.1 Hypo-osmolality and hyponatremia; C85.90 Non-Hodgkin lymphoma, unspecified, unspecified site; N18.3 Chronic kidney disease, stage 3 (moderate); K90.0 Celiac disease; E03.9 Hypothyroidism, unspecified; F03.90 Unspecified dementia, unspecified severity, without behavioral disturbance, psychotic disturbance, mood disturbance, and anxiety; I44.7 Left bundle-branch block, unspecified; K44.9 Diaphragmatic hernia without obstruction or gangrene; K57.90 Diverticulosis of intestine, part unspecified, without perforation or abscess without bleeding; I12.9 Hypertensive chronic kidney disease with stage 1 through stage 4 chronic kidney disease, or unspecified chronic kidney disease; K82.8 Other specified diseases of gallbladder; M81.0 Age-related osteoporosis without current pathological fracture; K21.9 Gastro-esophageal reflux disease without esophagitis; Z20.828 Contact with and (suspected) exposure to other viral communicable diseases; R00.1 Bradycardia, unspecified; R33.9 Retention of urine, unspecified; R26.2 Difficulty in walking, not elsewhere classified; R50.81 Fever presenting with conditions classified elsewhere; Z96.1 Presence of intraocular lens; Z86.73 Personal history of transient ischemic attack (TIA), and cerebral infarction without residual deficits; Z82.49 Family history of ischemic heart disease and other diseases of the circulatory system; Z98.49 Cataract extraction status, unspecified eye; Z82.3 Family history of stroke; Z82.0 Family history of epilepsy and other diseases of the nervous system; Z88.8 Allergy status to other drugs, medicaments and biological substances; Z88.5 Allergy status to narcotic agent; Z79.899 Other long term (current) drug therapy; Z79.82 Long term (current) use of aspirin

== ENCOUNTER 2019-10-03 13:46 | Emergency (ER) | payer MEDICARE ==
[~2019-10-03] VITALS: Wt 79.3 kg
[~2019-10-03 13:46] MED LIST changes: +LEVAQUIN500 M2 PO
[2019-10-03 14:20] LABS: BILIRUBIN NEGATIVE (NEGATIVE); BLOOD TRACE-INTACT (NEGATIVE); CLARITY SL CLOUDY (CLEAR); COLOR YELLOW (YELLOW); GLUCOSE NEGATIVE (NEGATIVE); KETONE NEGATIVE (NEGATIVE); LEUKO ESTERASE 1+ (NEGATIVE); NITRITE NEGATIVE (NEGATIVE); SPECIFIC GRAVITY 1.015 (1.005-1.030); UROBILINOGEN 0.2 E.U./dl (0.2-1.0)
[2019-10-03 14:23] LABS: WBC 31-40 wbc/hpf (0-5)
[2019-10-03 14:23] LABS: BASO % 0.4 % (0.0-1.0); EOS # 0.2 10*3/uL (0.0-0.4); EOS % 3.3 % (1.0-4.0); HEMATOCRIT 37.8 % (42.0-52.0); LYMPH # 1.3 10*3/uL (1.3-4.4); LYMPH % 24.9 % (27.0-41.0); MEAN CORPUSCULAR HGB 28.6 pg (27.0-31.0); MEAN CORPUSCULAR HGB CONC 31.7 g/dl (33.0-37.0); MEAN PLATELET VOLUME 9.1 fl (9.6-12.3); MONO # 0.5 10*3/uL (0.1-1.0); MONO % 9.6 % (3.0-9.0); NEUT # 3.2 10*3/uL (2.3-7.9); NEUT % 60.3 % (47.0-73.0); PLATELET COUNT AUTOMATED 240 10*3/uL (130-400); RED CELL DISTRI WIDTH 15.3 % (0-14.5); WHITE BLOOD COUNT 5.2 10*3/uL (4.8-10.8)
[2019-10-03 14:24] LABS: BACTERIA 1+
[2019-10-03 14:40] LABS: ALBUMIN 2.8 gm/dl (3.1-4.5); ALKALINE PHOSPHATASE 107 U/L (45-117); BUN 18 mg/dl (7-24); CHLORIDE 104 mmol/L (98-107); CREATININE 1.05 mg/dL (0.70-1.30); SGOT/AST 26 IU/L (3-35); SGPT/ALT 29 U/L (12-78); SODIUM 136 mmol/L (136-145); TOTAL PROTEIN 7.5 gm/dL (6.4-8.2)
== END 2019-10-03 17:03 | disposition other institution (70) ==
LOC: ED 13:46
PROVIDERS: Emergency Medicine
DX: N39.0 Urinary tract infection, site not specified (principal); I10 Essential (primary) hypertension; Z88.8 Allergy status to other drugs, medicaments and biological substances; Z88.5 Allergy status to narcotic agent; Z79.899 Other long term (current) drug therapy; Z90.49 Acquired absence of other specified parts of digestive tract

== ENCOUNTER 2019-11-23 09:54 | Inpatient (IN) | payer MEDICARE ==
[~2019-11-23] VITALS: Ht 185.4 cm; Wt 81.7 kg
[2019-11-23 09:56] VITALS: BP 137/65
[2019-11-23 10:21] LABS: BASO % 0.3 % (0.0-1.0); EOS # 0.1 10*3/uL (0.0-0.4); EOS % 0.5 % (1.0-4.0); HEMATOCRIT 38.4 % (42.0-52.0); LYMPH # 0.7 10*3/uL (1.3-4.4); LYMPH % 4.4 % (27.0-41.0); MEAN CELL VOLUME 89.7 fl (80.0-94.0); MEAN CORPUSCULAR HGB CONC 32.3 g/dl (33.0-37.0); MONO # 0.8 10*3/uL (0.1-1.0); MONO % 5.1 % (3.0-9.0); NEUT # 13.1 10*3/uL (2.3-7.9); NEUT % 89.4 % (47.0-73.0); PLATELET COUNT AUTOMATED 162 10*3/uL (130-400); RED BLOOD COUNT 4.28 10*6/uL (4.50-5.90); RED CELL DISTRI WIDTH 14.6 % (0-14.5); WHITE BLOOD COUNT 14.6 10*3/uL (4.8-10.8)
[2019-11-23 10:31] LABS: ACT PARTIAL THROMBO TIME 27.4 SECONDS (20.0-32.1)
[2019-11-23 10:39] LABS: ALBUMIN 3.3 gm/dl (3.1-4.5); ALKALINE PHOSPHATASE 116 U/L (45-117); BUN 26 mg/dl (7-24); CHLORIDE 103 mmol/L (98-107); CREATININE 1.07 mg/dL (0.70-1.30); LIPASE 100 U/L (73-393); POTASSIUM 4.1 mmol/L (3.5-5.1); SGOT/AST 16 IU/L (3-35); SGPT/ALT 16 U/L (12-78); SODIUM 136 mmol/L (136-145); TOTAL PROTEIN 7.5 gm/dL (6.4-8.2); TROPONIN I < 0.015 ng/ml (<0.045)
[2019-11-23 11:01] VITALS: BP 133/61
[2019-11-23 11:04] LABS: BILIRUBIN NEGATIVE; BLOOD 3+ (NEGATIVE); CLARITY TURBID (CLEAR); COLOR YELLOW (YELLOW); GLUCOSE NEGATIVE; KETONE NEGATIVE
[2019-11-23 11:05] LABS: LEUKO ESTERASE 3+ (NEGATIVE); NITRITE NEGATIVE (NEGATIVE); PH 8.5 (4.5-8.0); RBC TNTC rbc/hpf (0-2); WBC TNTC wbc/hpf (0-5)
[2019-11-23] MEDS ORDERED: IRON325 M1 PO (11:34)
[2019-11-23] MEDS ORDERED: PANTOPRAZOLE SO40 MG PO (11:35)
[2019-11-23 12:20] VITALS: BP 134/46
[2019-11-23] MEDS ORDERED: TAMSULOSIN HCL0.4 MG PO (12:44)
[2019-11-23] MEDS ORDERED: CLOPIDOGREL75 MG PO (12:44)
[2019-11-23] MEDS ORDERED: HYDROXYZINE PAM25 M1 PO (12:45)
[2019-11-23] MEDS ORDERED: FOSAMAX70 M1 PO (12:50)
[2019-11-23] MEDS ORDERED: GOOD NEIGHBOR P20 MG PO (12:50)
[2019-11-23 16:00] VITALS: BP 128/44
[2019-11-23 20:00] VITALS: BP 120/41
[2019-11-24] VITALS: BP 120/45
[2019-11-24 07:13] LABS: BASO % 0.3 % (0.0-1.0); EOS # 0.3 10*3/uL (0.0-0.4); EOS % 2.7 % (1.0-4.0); HEMATOCRIT 35.7 % (42.0-52.0); LYMPH # 1.6 10*3/uL (1.3-4.4); LYMPH % 13.6 % (27.0-41.0); MEAN CELL VOLUME 92.5 fl (80.0-94.0); MEAN CORPUSCULAR HGB 29.3 pg (27.0-31.0); MEAN CORPUSCULAR HGB CONC 31.7 g/dl (33.0-37.0); MEAN PLATELET VOLUME 9.6 fl (9.6-12.3); MONO % 8.4 % (3.0-9.0); NEUT # 8.7 10*3/uL (2.3-7.9); NEUT % 74.5 % (47.0-73.0); PLATELET COUNT AUTOMATED 154 10*3/uL (130-400); RED BLOOD COUNT 3.86 10*6/uL (4.50-5.90); RED CELL DISTRI WIDTH 14.9 % (0-14.5); WHITE BLOOD COUNT 11.6 10*3/uL (4.8-10.8)
[2019-11-24 07:34] LABS: BUN 24 mg/dl (7-24); CHLORIDE 106 mmol/L (98-107); CREATININE 0.99 mg/dL (0.70-1.30); SODIUM 140 mmol/L (136-145)
[2019-11-24 08:00] VITALS: BP 137/60
[2019-11-24 11:49] VITALS: BP 112/57
[2019-11-24 16:00] VITALS: BP 136/43
[2019-11-24 20:03] VITALS: BP 151/53
[2019-11-25] VITALS: BP 157/52
[2019-11-25 08:00] VITALS: BP 110/57
[2019-11-25 11:07] LABS: BILIRUBIN NEGATIVE; CLARITY CLEAR (CLEAR); COLOR YELLOW (YELLOW); GLUCOSE NEGATIVE; KETONE NEGATIVE; SPECIFIC GRAVITY 1.015 (1.001-1.030)
[2019-11-25 11:08] LABS: BLOOD TRACE-INTACT (NEGATIVE); LEUKO ESTERASE 2+ (NEGATIVE); NITRITE NEGATIVE (NEGATIVE); PH 5.5 (4.5-8.0)
[2019-11-25 11:11] LABS: BACTERIA TRACE; WBC 16-20 wbc/hpf (0-5)
[2019-11-25 12:00] VITALS: BP 112/61
[2019-11-25 16:00] VITALS: BP 140/73
[2019-11-25 20:00] VITALS: BP 158/70
[2019-11-26 08:00] VITALS: BP 155/57
[2019-11-26] MEDS ORDERED: LEVAQUIN500 M2 PO (11:41)
[2019-11-26 12:00] VITALS: BP 136/75
== END 2019-11-26 13:33 | disposition home health service (06) | DRG 698 ==
LOC: ED 09:54 → EDHOLD 11:22 → 4E 11:22
PROVIDERS: Emergency Medicine; Family Medicine; Hospitalist; ADMIT Internal Medicine; ATTEND Internal Medicine
PROC: 0T2BX0Z Change Drainage Device in Bladder, External Approach (ICD-10-PCS; principal; 2019-11-23)
DX: T83.518A Infection and inflammatory reaction due to other urinary catheter, initial encounter (principal); G93.41 Metabolic encephalopathy; N39.0 Urinary tract infection, site not specified; E86.0 Dehydration; D72.829 Elevated white blood cell count, unspecified; K21.9 Gastro-esophageal reflux disease without esophagitis; R79.82 Elevated C-reactive protein (CRP); N18.3 Chronic kidney disease, stage 3 (moderate); I44.7 Left bundle-branch block, unspecified; D64.9 Anemia, unspecified; K90.0 Celiac disease; Z96.612 Presence of left artificial shoulder joint; F03.90 Unspecified dementia, unspecified severity, without behavioral disturbance, psychotic disturbance, mood disturbance, and anxiety; K57.90 Diverticulosis of intestine, part unspecified, without perforation or abscess without bleeding; E03.9 Hypothyroidism, unspecified; M81.0 Age-related osteoporosis without current pathological fracture; K44.9 Diaphragmatic hernia without obstruction or gangrene; I12.9 Hypertensive chronic kidney disease with stage 1 through stage 4 chronic kidney disease, or unspecified chronic kidney disease; N40.0 Benign prostatic hyperplasia without lower urinary tract symptoms; Z88.6 Allergy status to analgesic agent; Z88.8 Allergy status to other drugs, medicaments and biological substances; Z98.49 Cataract extraction status, unspecified eye; Z90.49 Acquired absence of other specified parts of digestive tract; Z81.8 Family history of other mental and behavioral disorders; Z82.3 Family history of stroke; Z09 Encounter for follow-up examination after completed treatment for conditions other than malignant neoplasm; Z86.73 Personal history of transient ischemic attack (TIA), and cerebral infarction without residual deficits; I25.2 Old myocardial infarction

== ENCOUNTER 2020-01-27 13:38 | Emergency (ER) | payer MEDICARE ==
[~2020-01-27] VITALS: Wt 76.2 kg
[~2020-01-27 13:38] MED LIST changes: +CLOPIDOGREL75 MG PO; +GOOD NEIGHBOR P20 MG PO; +HYDROXYZINE PAM25 M1 PO; +IRON325 M1 PO; +PANTOPRAZOLE SO40 MG PO; +TAMSULOSIN HCL0.4 MG PO
[2020-01-27 14:06] LABS: BILIRUBIN Negative (Negative); BLOOD 2+ (Negative); CLARITY Turbid (Clear); COLOR Dark Yellow (Yellow); GLUCOSE Negative (Negative); KETONE Negative (Negative); LEUKO ESTERASE 3+ (Negative); NITRITE Negative (Negative); PH 7.5 (4.5-8.0)
[2020-01-27 14:15] LABS: WBC TNTC wbc/hpf (0-5)
[2020-01-27 15:30] LABS: BASO % 0.6 % (0.0-1.0); EOS # 0.3 10*3/uL (0.0-0.4); EOS % 4.7 % (1.0-4.0); HEMATOCRIT 39.3 % (42.0-52.0); LYMPH # 1.2 10*3/uL (1.3-4.4); LYMPH % 18.7 % (27.0-41.0); MEAN CELL VOLUME 88.5 fl (80.0-94.0); MEAN CORPUSCULAR HGB 28.2 pg (27.0-31.0); MEAN CORPUSCULAR HGB CONC 31.8 g/dl (33.0-37.0); MEAN PLATELET VOLUME 9.1 fl (9.6-12.3); MONO # 0.8 10*3/uL (0.1-1.0); MONO % 11.9 % (3.0-9.0); NEUT # 4.2 10*3/uL (2.3-7.9); NEUT % 63.8 % (47.0-73.0); PLATELET COUNT AUTOMATED 186 10*3/uL (130-400); RED BLOOD COUNT 4.44 10*6/uL (4.50-5.90); RED CELL DISTRI WIDTH 14.6 % (0-14.5); WHITE BLOOD COUNT 6.5 10*3/uL (4.8-10.8)
[2020-01-27 15:44] LABS: ALKALINE PHOSPHATASE 115 U/L (45-117); BUN 19 mg/dl (7-24); CHLORIDE 103 mmol/L (98-107); CREATININE 1.03 mg/dL (0.70-1.30); POTASSIUM 4.2 mmol/L (3.5-5.1); SGOT/AST 23 IU/L (3-35); SGPT/ALT 23 U/L (12-78); SODIUM 137 mmol/L (136-145); TOTAL PROTEIN 7.3 gm/dL (6.4-8.2)
== END 2020-01-27 19:31 | disposition short-term general hospital (02) ==
LOC: ED 13:38
PROVIDERS: Emergency Medicine
DX: N39.0 Urinary tract infection, site not specified (principal); R41.82 Altered mental status, unspecified; Z88.5 Allergy status to narcotic agent; Z91.018 Allergy to other foods; Z79.82 Long term (current) use of aspirin; Z79.899 Other long term (current) drug therapy

== ENCOUNTER → 2020-05-31 | Outpatient (CLI) | payer MEDICARE ==
[2020-05-31 12:14] LABS: BASO % 0.5 % (0.0-1.0); EOS # 0.2 10*3/uL (0.0-0.4); EOS % 3.1 % (1.0-4.0); HEMATOCRIT 42.1 % (42.0-52.0); LYMPH # 1.6 10*3/uL (1.3-4.4); LYMPH % 20.5 % (27.0-41.0); MEAN CELL VOLUME 89.8 fl (80.0-94.0); MEAN CORPUSCULAR HGB 28.4 pg (27.0-31.0); MEAN CORPUSCULAR HGB CONC 31.6 g/dl (33.0-37.0); MEAN PLATELET VOLUME 9.7 fl (9.6-12.3); MONO # 0.7 10*3/uL (0.1-1.0); MONO % 8.9 % (3.0-9.0); NEUT # 5.2 10*3/uL (2.3-7.9); NEUT % 66.4 % (47.0-73.0); PLATELET COUNT AUTOMATED 207 10*3/uL (130-400); RED BLOOD COUNT 4.69 10*6/uL (4.50-5.90); RED CELL DISTRI WIDTH 15.2 % (0-14.5); WHITE BLOOD COUNT 7.8 10*3/uL (4.8-10.8)
[2020-05-31 12:39] LABS: BUN 26 mg/dl (7-24); CHLORIDE 107 mmol/L (98-107); CREATININE 1.09 mg/dL (0.70-1.30); POTASSIUM 4.4 mmol/L (3.5-5.1); SODIUM 139 mmol/L (136-145)
== END | disposition home or self-care (01) ==
LOC: LAB 11:54 → CARD 12:00
PROVIDERS: ATTEND Thoracic Surgery (Cardiothoracic Vascular Surgery)
DX: I51.7 Cardiomegaly (principal); Z95.2 Presence of prosthetic heart valve

== ENCOUNTER 2020-08-01 16:10 | Inpatient (IN) | payer MEDICARE ==
[~2020-08-01] VITALS: Ht 172.7 cm; Wt 75.8 kg
[2020-08-01 16:17] VITALS: BP 120/50
[2020-08-01 16:44] LABS: BASO % 0.6 % (0.0-1.0); EOS # 0.2 10*3/uL (0.0-0.4); EOS % 3.2 % (1.0-4.0); HEMATOCRIT 40.2 % (42.0-52.0); LYMPH # 1.3 10*3/uL (1.3-4.4); MEAN CELL VOLUME 88.7 fl (80.0-94.0); MEAN CORPUSCULAR HGB 28.3 pg (27.0-31.0); MEAN CORPUSCULAR HGB CONC 31.8 g/dl (33.0-37.0); MEAN PLATELET VOLUME 9.9 fl (9.6-12.3); MONO # 0.7 10*3/uL (0.1-1.0); MONO % 11.6 % (3.0-9.0); NEUT % 63.1 % (47.0-73.0); PLATELET COUNT AUTOMATED 194 10*3/uL (130-400); RED BLOOD COUNT 4.53 10*6/uL (4.50-5.90); RED CELL DISTRI WIDTH 14.9 % (0-14.5); WHITE BLOOD COUNT 6.3 10*3/uL (4.8-10.8)
[2020-08-01 16:53] LABS: ACT PARTIAL THROMBO TIME 25.4 SECONDS (20.0-32.1)
[2020-08-01 17:00] LABS: ALBUMIN 2.7 gm/dl (3.1-4.5); BUN 20 mg/dl (7-24); CHLORIDE 106 mmol/L (98-107); CREATININE 0.93 mg/dL (0.70-1.30); POTASSIUM 4.1 mmol/L (3.5-5.1); SGOT/AST 20 IU/L (3-35); SGPT/ALT 26 U/L (12-78); SODIUM 138 mmol/L (136-145); TOTAL PROTEIN 6.8 gm/dL (6.4-8.2)
[2020-08-01 17:03] LABS: ALKALINE PHOSPHATASE 136 U/L (45-117); CPK 36 U/L (39-308); TROPONIN I 0.015 ng/ml (<0.045)
[2020-08-01 18:01] LABS: BILIRUBIN Negative (Negative); BLOOD 1+ (Negative); CLARITY Cloudy (Clear); COLOR Yellow (Yellow); GLUCOSE Negative (Negative); KETONE Negative (Negative); LEUKO ESTERASE 3+ (Negative); NITRITE Negative (Negative); PH 6.5 (4.5-8.0)
[2020-08-01 18:13] LABS: WBC TNTC wbc/hpf (0-5)
[2020-08-01 20:00] VITALS: BP 174/57
[2020-08-01] MEDS ORDERED: FLONASE ALLERG9.9 ML NAS (21:56)
[2020-08-02] VITALS: BP 162/57
[2020-08-02 05:58] LABS: BASO % 0.6 % (0.0-1.0); EOS # 0.2 10*3/uL (0.0-0.4); EOS % 3.4 % (1.0-4.0); HEMATOCRIT 41.8 % (42.0-52.0); LYMPH # 1.3 10*3/uL (1.3-4.4); LYMPH % 19.4 % (27.0-41.0); MEAN CORPUSCULAR HGB 28.6 pg (27.0-31.0); MEAN CORPUSCULAR HGB CONC 32.5 g/dl (33.0-37.0); MEAN PLATELET VOLUME 9.7 fl (9.6-12.3); MONO # 0.6 10*3/uL (0.1-1.0); MONO % 9.9 % (3.0-9.0); NEUT # 4.3 10*3/uL (2.3-7.9); NEUT % 65.9 % (47.0-73.0); PLATELET COUNT AUTOMATED 199 10*3/uL (130-400); RED BLOOD COUNT 4.75 10*6/uL (4.50-5.90); RED CELL DISTRI WIDTH 14.5 % (0-14.5); WHITE BLOOD COUNT 6.5 10*3/uL (4.8-10.8)
[2020-08-02 06:30] LABS: CHLORIDE 104 mmol/L (98-107); SODIUM 137 mmol/L (136-145)
[2020-08-02 06:38] LABS: VITAMIN D, 25-HYDROXY 48.1 ng/mL (30-100)
[2020-08-02 06:52] LABS: BUN 17 mg/dl (7-24); FREE T4 1.33 ng/dl (0.76-1.46); THYROID STIM HORMONE (HS) 0.181 uIU/ml (0.358-4.75)
[2020-08-02 08:09] VITALS: BP 163/70
[2020-08-02 12:00] VITALS: BP 115/41
[2020-08-02 16:00] VITALS: BP 128/51
[2020-08-02 20:00] VITALS: BP 150/64
[2020-08-03] VITALS: BP 167/74
[2020-08-03 06:17] LABS: BASO # 0.1 10*3/uL (0.0-0.1); BASO % 0.7 % (0.0-1.0); EOS # 0.2 10*3/uL (0.0-0.4); EOS % 3.5 % (1.0-4.0); HEMATOCRIT 42.6 % (42.0-52.0); LYMPH # 1.8 10*3/uL (1.3-4.4); MEAN CELL VOLUME 89.7 fl (80.0-94.0); MEAN CORPUSCULAR HGB 28.6 pg (27.0-31.0); MEAN CORPUSCULAR HGB CONC 31.9 g/dl (33.0-37.0); MEAN PLATELET VOLUME 9.9 fl (9.6-12.3); MONO # 0.7 10*3/uL (0.1-1.0); MONO % 10.8 % (3.0-9.0); NEUT # 3.9 10*3/uL (2.3-7.9); NEUT % 58.3 % (47.0-73.0); PLATELET COUNT AUTOMATED 202 10*3/uL (130-400); RED BLOOD COUNT 4.75 10*6/uL (4.50-5.90); RED CELL DISTRI WIDTH 14.7 % (0-14.5); WHITE BLOOD COUNT 6.8 10*3/uL (4.8-10.8)
[2020-08-03 06:32] LABS: BUN 23 mg/dl (7-24); CHLORIDE 103 mmol/L (98-107); CREATININE 0.95 mg/dL (0.70-1.30); POTASSIUM 4.2 mmol/L (3.5-5.1); SODIUM 137 mmol/L (136-145)
[2020-08-03 08:00] VITALS: BP 160/68
[2020-08-03 12:00] VITALS: BP 109/59
[2020-08-03 16:00] VITALS: BP 140/50
[2020-08-03 20:00] VITALS: BP 135/58
[2020-08-04] VITALS: BP 146/57
[2020-08-04 06:00] LABS: BUN 24 mg/dl (7-24); CHLORIDE 103 mmol/L (98-107); POTASSIUM 4.3 mmol/L (3.5-5.1); SODIUM 136 mmol/L (136-145)
[2020-08-04 06:19] LABS: BASO % 0.6 % (0.0-1.0); EOS # 0.2 10*3/uL (0.0-0.4); EOS % 2.9 % (1.0-4.0); HEMATOCRIT 41.9 % (42.0-52.0); LYMPH # 1.6 10*3/uL (1.3-4.4); LYMPH % 22.4 % (27.0-41.0); MEAN CELL VOLUME 88.4 fl (80.0-94.0); MEAN CORPUSCULAR HGB 28.3 pg (27.0-31.0); MEAN PLATELET VOLUME 9.9 fl (9.6-12.3); MONO # 0.8 10*3/uL (0.1-1.0); MONO % 10.4 % (3.0-9.0); NEUT # 4.6 10*3/uL (2.3-7.9); PLATELET COUNT AUTOMATED 212 10*3/uL (130-400); RED BLOOD COUNT 4.74 10*6/uL (4.50-5.90); RED CELL DISTRI WIDTH 14.8 % (0-14.5); WHITE BLOOD COUNT 7.2 10*3/uL (4.8-10.8)
[2020-08-04 08:00] VITALS: BP 108/79
[2020-08-04 12:00] VITALS: BP 123/64
[2020-08-04] MEDS ORDERED: LEVOFLOXACIN500 MG PO (12:41)
[2020-08-04] MEDS ORDERED: NITROFURANTOIN100 M3 PO (12:41)
== END 2020-08-04 13:25 | disposition home health service (06) | DRG 689 ==
LOC: ED 16:10 → EDHOLD 17:32 → 5E 17:32
PROVIDERS: Emergency Medicine; Internal Medicine; ADMIT Internal Medicine; ATTEND Internal Medicine
DX: N39.0 Urinary tract infection, site not specified (principal); G93.41 Metabolic encephalopathy; E43 Unspecified severe protein-calorie malnutrition; Z20.822 Contact with and (suspected) exposure to COVID-19; F03.90 Unspecified dementia, unspecified severity, without behavioral disturbance, psychotic disturbance, mood disturbance, and anxiety; N18.30 Chronic kidney disease, stage 3 unspecified; K57.90 Diverticulosis of intestine, part unspecified, without perforation or abscess without bleeding; K21.9 Gastro-esophageal reflux disease without esophagitis; E03.9 Hypothyroidism, unspecified; Z96.612 Presence of left artificial shoulder joint; R73.9 Hyperglycemia, unspecified; I12.9 Hypertensive chronic kidney disease with stage 1 through stage 4 chronic kidney disease, or unspecified chronic kidney disease; B96.5 Pseudomonas (aeruginosa) (mallei) (pseudomallei) as the cause of diseases classified elsewhere; B95.2 Enterococcus as the cause of diseases classified elsewhere; M81.0 Age-related osteoporosis without current pathological fracture; Z86.73 Personal history of transient ischemic attack (TIA), and cerebral infarction without residual deficits; Z88.6 Allergy status to analgesic agent; Z88.8 Allergy status to other drugs, medicaments and biological substances; I25.2 Old myocardial infarction; Z98.49 Cataract extraction status, unspecified eye; Z82.3 Family history of stroke; Z81.8 Family history of other mental and behavioral disorders; Z68.25 Body mass index [BMI] 25.0-25.9, adult

== ENCOUNTER 2020-10-24 12:54 | Emergency (ER) | payer MEDICARE ==
[~2020-10-24] VITALS: Ht 187.9 cm; Wt 81.6 kg
[~2020-10-24 12:54] MED LIST changes: +FLONASE ALLERG9.9 ML NAS; +LEVOFLOXACIN500 MG PO; +NITROFURANTOIN100 M3 PO
[2020-10-24 13:36] LABS: BASO # 0.1 10*3/uL (0.0-0.1); BASO % 0.9 % (0.0-1.0); EOS # 0.3 10*3/uL (0.0-0.4); EOS % 3.7 % (1.0-4.0); HEMATOCRIT 46.1 % (42.0-52.0); LYMPH # 1.8 10*3/uL (1.3-4.4); LYMPH % 23.1 % (27.0-41.0); MEAN CELL VOLUME 90.6 fl (80.0-94.0); MEAN CORPUSCULAR HGB 28.9 pg (27.0-31.0); MEAN CORPUSCULAR HGB CONC 31.9 g/dl (33.0-37.0); MEAN PLATELET VOLUME 9.4 fl (9.6-12.3); MONO # 0.7 10*3/uL (0.1-1.0); MONO % 8.9 % (3.0-9.0); NEUT # 4.9 10*3/uL (2.3-7.9); NEUT % 62.8 % (47.0-73.0); PLATELET COUNT AUTOMATED 187 10*3/uL (130-400); RED BLOOD COUNT 5.09 10*6/uL (4.50-5.90); RED CELL DISTRI WIDTH 14.6 % (0-14.5); WHITE BLOOD COUNT 7.8 10*3/uL (4.8-10.8)
[2020-10-24 13:54] LABS: ALBUMIN 3.3 gm/dl (3.1-4.5); ALKALINE PHOSPHATASE 126 U/L (45-117); BUN 17 mg/dl (7-24); CHLORIDE 104 mmol/L (98-107); CREATININE 0.93 mg/dL (0.70-1.30); POTASSIUM 4.6 mmol/L (3.5-5.1); SGOT/AST 32 IU/L (3-35); SGPT/ALT 45 U/L (12-78); SODIUM 135 mmol/L (136-145); TOTAL PROTEIN 7.5 gm/dL (6.4-8.2)
[2020-10-24 13:56] LABS: TROPONIN I < 0.015 ng/ml (<0.045)
[2020-10-24 14:51] LABS: BILIRUBIN Negative (Negative); BLOOD 3+ (Negative); CLARITY Turbid (Clear); COLOR Yellow (Yellow); GLUCOSE Negative (Negative); KETONE Negative (Negative); LEUKO ESTERASE 3+ (Negative); NITRITE Positive (Negative); PH 7.5 (4.5-8.0); SPECIFIC GRAVITY 1.015 (1.001-1.030)
[2020-10-24 15:06] LABS: BACTERIA 3+; RBC 41-50 rbc/hpf (0-2); WBC 31-40 wbc/hpf (0-5)
[2020-10-24] MEDS ORDERED: LEVOFLOXACIN750 M2 PO (15:32)
== END 2020-10-24 16:25 | disposition home or self-care (01) ==
LOC: ED 12:54
PROVIDERS: Student in an Organized Health Care Education/Training Program
DX: T83.518A Infection and inflammatory reaction due to other urinary catheter, initial encounter (principal); Z88.6 Allergy status to analgesic agent; Z91.018 Allergy to other foods; Z79.899 Other long term (current) drug therapy; Y92.89 Other specified places as the place of occurrence of the external cause